=== PATIENT | female | born 1990 | race African-American/Black ===

== ENCOUNTER 2021-04-23 14:22 | Observation (INO) | payer OTHER, SELFPAY ==
[2021-04-23 14:45] VITALS: BP 106/65; PULSE 104
[2021-04-23 14:46] VITALS: BP 105/65; PULSE 104
[2021-04-23 15:42] VITALS: BMI 29.9
--- NOTE | 2021-05-16 19:31 | PM.OBTRLD ---
OB - Triage/Final Diagnosis Visit Information Comments/Additional reasons for admission: I have assessed the risk for this patient, Ibis Wyatt, and determined that she would benefit from observation care. Final Diagnosis (1) Edema: Code(s): R60.9 - Edema, unspecified Status: Acute
== END 2021-04-23 16:25 | disposition home or self-care (01) ==
PROVIDERS: Admitting Provider Obstetrics & Gynecology; PCP Obstetrics & Gynecology; Visit Provider Obstetrics & Gynecology
DX: O12.03 Gestational edema, third trimester (principal); O24.419 Gestational diabetes mellitus in pregnancy, unspecified control; Z3A.31 31 weeks gestation of pregnancy
CPT/HCPCS: G0378; G0379

== ENCOUNTER 2021-04-26 12:30 | Outpatient (RCR) | payer OTHER, SELFPAY ==
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
--- NOTE | 2021-03-31 14:09 | PCPTNOTE ---
Patient called & cancelled scheduled appointment this date due to not being able to make it today.
--- NOTE | 2021-04-12 09:20 | PCPTNOTE ---
Patient called & cancelled scheduled appointment this date due to still being out of town.
--- NOTE | 2021-04-26 14:20 | PTOPEVAL ---
PHYSICAL THERAPY DISCHARGE SUMMARY Thank you for referring Ibis Wyatt to [facility].? Ibis was seen for a total of 7 visits. Progress has made towards goals set, but she is still having back discomfort and mobility difficulties as her progresses. She is ready for d/c from PT to HEP - which she was encouraged to continue to perform. I agree with Ibis's discharge from PT. Referring Physician Date Admitting Provider: Attending Provider: Jennifer Delacruz MD Referring Provider: Jennifer Delacruz MD Therapy Assessment Status Assessment Status Assessment Status Discharge Outpatient Past Medical History Past Medical History Source of Past Medical History Patient Reproductive History Hx Section Yes: 2013 Evaluation Information Problem Diagnosis low back pain in Subjective Information Ibis states that she is Query Text:As Reported By Patient/ ready to have the baby but Family realizes that she still has 8 more weeks to go until due date. Will get increase in discomfort with prolonged standing, with moving and doing something as well. Sleeping can be uncomfortable - rolling takes awhile due to discomfort. Pain Assessment Timing of Pain Assessment Timing of Pain Assessment Assessment Pain Scale Pain Scale Used Numeric (1 - 10) Self Report Pain Assessment Lower Back Reported Pain Level 5 Other Pain Description in and out type of pain Lowest Pain Intensity 2 Greatest Pain Intensity 5 Cervical and Lumbar ROM Lumbar ROM Lumbar Flexion (0-90) 60 Query Text:Active in Degrees Lumbar Extension (0-40) 25 Query Text:Active in Degrees Lumbar Lateral Flexion Right (0-40) 20 Query Text:Active in Degrees Lumbar Lateral Flexion Left (0-40) 20 Query Text:Active in Degrees Lumbar Comments no c/o's of discomfort Palpation Assessment Palpation Palpation standing - L posterior innominate - very mild decreased mobility with L SIJ Rehab Teaching Rehab Teaching Teaching Topic Rehab Teaching Topic Components Exercise,Home Program As Pertains To Technique Recipient Patient Learning Preferences Audio,Demonstration,Discussion ,One-on-One Instruction,Visual ,Written Barriers to Learning None Readiness to Learn Good Response Returns Demonstration,
== END 2021-04-29 14:34 | disposition home or self-care (01) ==
LOC: ANHPT 12:30
PROVIDERS: PCP Obstetrics & Gynecology; Referring Provider Obstetrics & Gynecology; Visit Provider Obstetrics & Gynecology
DX: O26.899 Other specified pregnancy related conditions, unspecified trimester (principal); M54.5 Low back pain; Z3A.00 Weeks of gestation of pregnancy not specified
CPT/HCPCS: 97110; 97140; 97162

== ENCOUNTER 2021-05-17 14:24 | Observation (INO) | payer OTHER, SELFPAY ==
[2021-05-17] VITALS (29 sets, daily range): BP systolic 96–123; BP diastolic 58–87; PULSE 97–124; TEMP 36.4–36.6; BMI 30.4
--- NOTE | ~2021-05-17 | US_ITS ---
EXAMINATION: US OB limited DATE: 05/18/2021 07:34 INDICATION: Possible amniotic fluid leak during third trimester TECHNIQUE: Real-time ultrasound of the pelvis was performed. The interpreting radiologist was not pre sent for the study. COMPARISON: None. FINDINGS: There is a single living fetus in vertex presentation. The placenta is posterior. car diac activity and movement are noted. heart rate is 132 beats per minute (bpm). The amnio tic fluid index is 12.53 cm which is normal (normal range: 8.1 cm to 24.8 cm). IMPRESSION: 1. Single living fetus in vertex presentation. 2. Normal amniotic fluid index. Reviewed, dictated and finalized at location B.
--- NOTE | 2021-05-17 14:25 | LDADM ---
This patient, Ibis Wyatt, was admitted to OB Post 113 on 05/17/21 at 14:25. Plans for labor, pain management and were discussed with patient. Patient/family oriented to hospital policies and general routines including ID bracelet, bed and alarms, visiting hours, pain management, procedures, bathroom and other care routines, personal items, smoking policy, room service/diet and guest tray routines, infant security routines, and visiting hours. Patient/Family are encouraged to report perceived risks to care and to ask questions if they do not understand what they are told or what they should do. See OBIX for further documentation.
[2021-05-17 15:17] LABS: Add Urine Microscopic? YES; Appearance Urine Clear (Clear); Bacteria Urine Trace /hpf; Bilirubin Urine Negative (Negative); Blood Urine Negative (Negative); Color Urine Yellow (Yellow); Glucose Urine UA 1+ mg/dL (Negative); Ketones Urine Negative (Negative); Leukocyte Esterase Ur Negative LEU/UL (NEGATIVE); Mucus Urine Rare /lpf; Nitrate Urine Negative (Negative); Protein Urine 1+ mg/dL (Negative); RBC Urine 0-2 /hpf (0-2); Squamous Epithelial Cell Urine Few /hpf (Few); WBC Urine 0-3 /hpf (0-3)
[2021-05-17 17:22] LABS: Basophils Percent Auto 0.2 % (0.2-1.2); Eosinophils Percent Auto 0.5 % (0-4.4); Hematocrit 31.4 % (37.0-47.0); Hemoglobin 9.6 g/dL (12.0-15.0); Immature Granulocyte Absolute 0.14 K/mm3 (0.00-0.031); Immature Granulocyte Percent A 1.7 % (0-0.5); Lymphocytes Absolute Auto 1.94 K/mm3 (0.9-3.2); Lymphocytes Percent Auto 24.1 % (18.3-44.2); Mean Corpuscular HGB Conc 30.6 g/dl (32-36); Mean Corpuscular Hemoglobin 26.5 pg (26-34); Mean Corpuscular Volume 86.7 fl (80-100); Mean Platelet Volume 12.9 fl (7.4-10.4); Monocytes Absolute Auto 0.8 K/mm3 (0.1-0.6); Monocytes Percent Auto 10.2 % (2.6-8.5); Neutrophils Absolute Auto 5.1 K/mm3 (1.3-6.7); Neutrophils Percent Auto 63.3 % (45.5-73.1); Nucleated Red Blood Cells Perc 0.2 % (0.0-0.2); Platelet Count Result 193 k/mm3 (150-375); Red Blood Count 3.62 M/mm3 (4.2-5.4); Red Cell Distribution Width 14.7 % (11.5-14.5)
[2021-05-17 17:35] LABS: Uric Acid 3.5 mg/dL (2.5-7.5)
[2021-05-17 17:45] LABS: Anisocytosis 2+ (NORMAL); Hypochromasia 1+ (NORMAL); Platelet Estimate Adequate (Adequate)
[2021-05-17] MEDS: LACTATED RINGERS 1,000 ML 125 ML IV CONT (17:58)
[2021-05-17] MEDS: AMPICILLIN 2 GM/NS 100 ML 2 GM/100 ML BAG IVPB (17:58)
[2021-05-17 18:22] LABS: Amphetamine Screen Urine Negative (Negative); Barbiturate Screen Urine Negative (Negative); Benzodiazepines Screen Urine Negative (Negative); Cannabinoid Screen Urine Negative (Negative); Cocaine Screen Urine Negative (Negative); Methadone Screen Urine Negative (Negative); Opiate Screen Urine Negative (Negative); Phencyclidine Screen Urine Negative (Negative)
[2021-05-17 18:58] LABS: Alanine Aminotransferase 14 U/L (4-35); Albumin Level 3.4 g/dL (3.5-5.1); Anion Gap 4 mmol/L (8-16); Aspartate Amino Transferase 25 U/L (14-36); Bilirubin,Total 0.4 mg/dL (0.2-1.3); Blood Urea Nitrogen 10 mg/dL (7-17); Calcium 8.9 mg/dL (8.4-10.2); Carbon Dioxide 21 mmol/L (22-30); Chloride 106 mmol/L (98-107); Estimated CRCL calculation 143 ml/min; Estimated Glomerular Filt Rate > 60; Glucose 73 mg/dL (65-110); Potassium 3.9 mmol/L (3.4-5.0); Sodium 131 mmol/L (137-145)
[2021-05-17 19:01] LABS: Alkaline Phosphatase 1574 U/L (38-126)
[2021-05-17] MEDS: AMPICILLIN 1 GM/NS 50 ML 1 GM/50 ML BAG IVPB (23:14)
[2021-05-18] VITALS (9 sets, daily range): BP systolic 105–112; BP diastolic 56–63; PULSE 94–102; TEMP 36.5–36.6
[2021-05-18] MEDS: AMPICILLIN 1 GM/NS 50 ML 1 GM/50 ML BAG IVPB ×2 (03:31→07:53)
[2021-05-18 06:26] LABS: Glucose Point of Care 103 mg/dl (65-105)
[2021-05-18 06:50] LABS: Rapid Plasma Reagin Non-Reactive (NonReactive)
--- NOTE | 2021-05-18 07:24 | PC.NURSE ---
Patient taken to ultrasound via wheelchair.
--- NOTE | 2021-05-18 08:10 | PC.NURSE ---
Dr. Lemos at bedside. Dr. Lemos updated on maternal and assessments; including MARANDA results. FHT strip reviewed. Plan of care discussed with patient. Dr. Lemos performed speculum exam and collected cultures and ROM plus.
--- NOTE | 2021-05-18 08:13 | PM.IMHP ---
H&P: HPI History of Present Illness Date/Time: 05/18/21 08:13 Chief Complaint: pelvic pressure, leaking of fluid Narrative: Pt is a at 34+ weeks who was admitted in [place] with possible PTL, 4cm, got steroids, all last week. Traveled home, then Sunday started leaking, not urine, but only happened shortly after she urinated. While walking around otherwise never leaked. Denies odor, irritation, itching. Yesterday ROM plus was pos, but MARANDA this am was 12+. WBC 8. Has been on antibiotics. Occasional contractions. Review of Systems Review of Systems: All systems reviewed & are unremarkable except as noted in HPI and below Meds Home Medications and Allergies Allergies Allergy/AdvReac Type Severity Reaction Status Date / Time No Known Allergies Allergy Unknown Unverified 04/23/17 14:59 Vital Signs Vital Signs - 24 hr 05/17/21 15:00 05/17/21 15:15 05/17/21 15:30 Temperature Pulse Rate 98 124 H 100 Blood Pressure 113/65 96/66 L 113/79 05/17/21 15:45 05/17/21 16:00 05/17/21 16:10 Temperature 97.6 F Pulse Rate 105 H 100 Blood Pressure 114/74 119/73 05/17/21 16:15 05/17/21 16:31 05/17/21 16:45 Temperature Pulse Rate 108 H 101 H 97 Blood Pressure 119/87 119/74 117/69 05/17/21 17:01 05/17/21 17:15 05/17/21 19:32 Temperature Pulse Rate 100 103 H 101 H Blood Pressure 123/68 105/75 117/69 05/17/21 19:45 05/17/21 20:01 05/17/21 20:13 Temperature 97.8 F Pulse Rate 124 H 107 H Blood Pressure 107/61 109/77 05/17/21 20:15 05/17/21 20:30 05/17/21 20:45 Temperature Pulse Rate 103 H 104 H 105 H Blood Pressure 109/66 108/60 105/64 05/17/21 21:00 05/17/21 21:15 05/17/21 21:30 Temperature Pulse Rate 101 H 100 104 H Blood Pressure 106/58 L 111/62 109/69 05/17/21 21:45 05/17/21 22:00 05/17/21 22:46 Temperature Pulse Rate 115 H 103 H Blood Pressure 122/82 110/62 114/63 05/17/21 23:01 05/17/21 23:15 05/17/21 23:31 Temperature Pulse Rate 107 H 103 H 99 Blood Pressure 107/61 109/73 111/62 05/17/21 23:45 05/17/21 23:50 05/18/21 00:00 Temperature 98 F Pulse Rate 98 102 H Blood Pressure 111/65 110/61 05/18/21 00:15 05/18/21 00:30 05/18/21 00:45 Temperature Pulse Rate 101 H 99 96 Blood Pressure 112/63 107/57 L 110/60 05/18/21 03:35 05/18/21 04:01 05/18/21 07:36 Temperature 97.8 F 97.9 F Pulse Rate 96 Blood Pressure 108/56 L Exam Const: General: no acute distress Cardio: Rate: regular rate Rhythm: regular rhythm GI: GI Palp: Yes Soft to palpation : Other: Normal external genitalia, ROM plus collected, excessive white creamy vaginal discharge. No clear fluid noted from os. Extrem: General: normal to inspection H&P: Results Labs Labs: Short CBC 05/17/21 Range/Units 17:15 WBC 8.0 (4.5-10.0) K/mm3 Hgb 9.6 L (12.0-15.0) g/dL Hct 31.4 L (37.0-47.0) % Plt Count 193 (150-375) k/mm3 BMP 05/17/21 17:15 Sodium 131 L Potassium 3.9 Chloride 106 Carbon Dioxide 21 L BUN 10 Creatinine 0.50 L Glucose 73 Calcium 8.9 Liver Function 05/17/21 Range/Units 17:15 Total Bilirubin 0.4 (0.2-1.3) mg/dL AST 25 (14-36) U/L ALT 14 (4-35) U/L Alkaline Phosphatase 1574 H (38-126) U/L Albumin 3.4 L (3.5-5.1) g/dL Urine 05/17/21 Range/Units 14:52 Urine Color Yellow (Yellow) Urine Appearance Clear (Clear) Urine pH 7.0 (5.0-9.0) Ur Specific [place] 1.030 (1.001-1.035) Urine Protein 1+ H (Negative) mg/dL Urine Glucose (UA) 1+ H (Negative) mg/dL Assessment and Plan Assessment and plan (1) Vaginal discharge during : Code(s): O26.899 - Other specified related conditions, unspecified trimester; N89.8 - Other specified noninflammatory disorders of vagina Status: Acute Additional Plan Given normal MARANDA, speculum exam c/w copious vaginal discharge, and neg Rom plus today, I am confident she does not hav
--- NOTE | 2021-05-18 08:30 | PC.NURSE ---
Dr. Lemos notified of negative ROM plus results. Discharge orders received. Patient will follow-up in office this week.
--- NOTE | 2021-05-18 08:32 | PC.NURSE ---
Plan of care discussed with patient. Patient notified of negative ROM plus results. Patient agrees to plan of care and denies questions. Patient is agreeable to discharge.
--- NOTE | 2021-05-18 08:59 | PC.NURSE ---
Discharge instructions reviewed with patient. Patient states understanding of discharge instructions and denies questions. labor precautions reviewed and handout given to patient. Patient states understanding. Patient instructed to follow-up at [facility] [place] as scheduled tomorrow 05/19/2021.
--- NOTE | 2021-05-18 09:03 | PC.NURSE ---
Patient left ambulating.
== END 2021-05-18 09:03 | disposition home or self-care (01) ==
PROVIDERS: Advanced Practice Midwife; Admitting Provider Obstetrics & Gynecology; PCP Obstetrics & Gynecology; Visit Provider Obstetrics & Gynecology
DX: O26.893 Other specified pregnancy related conditions, third trimester (principal); N89.8 Other specified noninflammatory disorders of vagina; R10.2 Pelvic and perineal pain; Z3A.34 34 weeks gestation of pregnancy
CPT/HCPCS: 36415; 76815; 80053; 80307; 81001; 82948; 84112; 84550; 85025; 86592; 86850; 86900; 86901; 87070; 87086; 87088; 87491; 87591; 87808; 96361; 96365; 96366; G0378; G0379; J0290; J7120

== ENCOUNTER 2021-05-23 06:15 | Inpatient (IN) | payer OTHER, SELFPAY ==
[2021-05-23] VITALS (61 sets, daily range): BP systolic 96–175; BP diastolic 52–128; PULSE 70–171; RESP 16; TEMP 36.5–37; O2SAT 96–100; BMI 31.0
--- NOTE | 2021-05-23 07:03 | WPDANESEPPF ---
Anes - Initial Pre Proc Eval Procedure: labor epidural Date/Time: 05/23/21 07:03 Surgeon: Jennifer Delacruz MD Pre Op Diagnosis: labor pain Pre Op Diagnosis: SROM Patient Data Age: 30 Gender: F Height: Weight: Allergies Allergy/AdvReac Type Severity Reaction Status Date / Time No Known Allergies Allergy Unknown Unverified 04/23/17 14:59 Laboratory Tests 05/23/21 05/23/21 06:58 06:58 WBC Pending RBC Pending Hgb Pending Hct Pending MCV Pending MCH Pending MCHC Pending RDW Pending Plt Count Pending MPV Pending Immature Gran % (Auto) Pending Neut % (Auto) Pending Lymph % (Auto) Pending [place] % (Auto) Pending Eos % (Auto) Pending Baso % (Auto) Pending Lymph # (Auto) Pending [place] # (Auto) Pending Eos # (Auto) Pending Baso # (Auto) Pending Abs Immat Gran (auto) Pending Absolute Neuts (auto) Pending Absolute Nucleated RBC Pending Nucleated RBC % Pending RPR Pending Patient hx anesthesia problems: none Family hx anesthesia problems: none Anes - Eval Final PreProcedure Day of Procedure 05/23/21 07:03 Patient weight: normal Heart: regular rate and rhythm Lungs: clear to auscultation and normal air movement Airway: Mallampati scale class II Neurological: alert and oriented ASA classification: II Emergent: no Anesthetic plan: proceed Anesthesia type and monitoring: regional epidural and standard monitoring Informed Consent: The patient's anesthetic plan and its attendant risks and benefits were discussed with the patient/family/POA. Questions were solicited and answers provided to the satisfaction of the patient/family/POA.
[2021-05-23] MEDS: AMPICILLIN 2 GM/NS 100 ML 2 GM/100 ML BAG IVPB (07:06)
[2021-05-23] MEDS: LACTATED RINGERS 1,000 ML 125 ML IV CONT ×2 (07:07→07:44)
[2021-05-23 07:15] LABS: Basophils Percent Auto 0.3 % (0.2-1.2); Eosinophils Percent Auto 0.5 % (0-4.4); Hematocrit 35.3 % (37.0-47.0); Hemoglobin 10.4 g/dL (12.0-15.0); Immature Granulocyte Absolute 0.06 K/mm3 (0.00-0.031); Immature Platelet Fraction Pct 16.6 % (0.9-11.2); Lymphocytes Absolute Auto 1.71 K/mm3 (0.9-3.2); Lymphocytes Percent Auto 27.7 % (18.3-44.2); Mean Corpuscular HGB Conc 29.5 g/dl (32-36); Mean Corpuscular Hemoglobin 25.4 pg (26-34); Mean Corpuscular Volume 86.3 fl (80-100); Mean Platelet Volume 13.4 fl (7.4-10.4); Monocytes Absolute Auto 0.4 K/mm3 (0.1-0.6); Monocytes Percent Auto 7.1 % (2.6-8.5); Neutrophils Absolute Auto 3.9 K/mm3 (1.3-6.7); Neutrophils Percent Auto 63.4 % (45.5-73.1); Platelet Count Result 192 k/mm3 (150-375); Red Blood Count 4.09 M/mm3 (4.2-5.4); Red Cell Distribution Width 14.7 % (11.5-14.5); White Blood Count 6.2 K/mm3 (4.5-10.0)
[2021-05-23 07:37] LABS: Glucose Point of Care 80 mg/dl (65-105)
--- NOTE | 2021-05-23 07:37 | WPDOBADMIT ---
Obstetrics - Admit Note Admission Note: 30 y/o @ 35w2d here with srom. complicated by diet controlled GDM.Previous c/s with 1st . History of successful . Pt desires with this . We have discussed risks including uterine rupture. Pt verbalized understanding and agrees to proceed. record reviewed. No pertinent additions to the history and/or any subsequent changes in the physical findings that are not consistent with the expected course of the were found. Additions to the history and/or subsequent changes in the physical findings follow. None.
[2021-05-23 08:37] LABS: Rapid Plasma Reagin Non-Reactive (NonReactive)
[2021-05-23] MEDS: ONDANSETRON INJ 4 MG/2 ML VIAL IV PUSH (10:28)
[2021-05-23] MEDS: OXYTOCIN 30 UNITS/NS 500 ML 30 UNITS/500 ML BAG 125 UNITS IV CONT ×2 (10:28→12:26)
[2021-05-23] MEDS: AMPICILLIN 1 GM/NS 50 ML 1 GM/50 ML BAG IVPB (10:51)
--- NOTE | 2021-05-23 12:09 | PM.OBPRVD ---
OB - Delivery Note Procedure Delivery date: 05/23/21 Procedure: / events: Labor < 37 Weeks, Previous and Premature Rupture of Membrane Intrapartal events: None Induction method: none Delivery monitor: external FHT and external uterine Route of delivery: Episiotomy description: None Laceration Description: None Quantitative Blood Loss (ml): 474 Anesthesia type: Epidural Narrative: Mother and baby in stable condition. Cord gasses collected and handed off to staff. Baby Date of : 05/23/21 Time of : 11:40 Weeks of gestation at delivery: 35 gender: Female presentation: vertex position: Left Occiput Anterior Placenta delivery description: Manual Removal and Abnormal Configuration (Large gush of blood. Cord felt to be from placenta. Manual exp revealed placenta which felt to be tearing into 2 pieces.After delivery placenta is in 1 piece but .) cord vessel description: Delayed Cord Clamping
[2021-05-23 12:56] LABS: Amphetamine Screen Urine Negative (Negative); Barbiturate Screen Urine Negative (Negative); Benzodiazepines Screen Urine Negative (Negative); Cannabinoid Screen Urine Negative (Negative); Cocaine Screen Urine Negative (Negative); Methadone Screen Urine Negative (Negative); Opiate Screen Urine Negative (Negative); Phencyclidine Screen Urine Negative (Negative)
[2021-05-23] MEDS: BENZOCAINE 20% AER SPR (*SP) 56 GM CAN 1 SPRAY TOPICAL (13:33)
[2021-05-23] MEDS: WITCH HAZEL 40 PADS 1 PAD TOPICAL (13:33)
--- NOTE | 2021-05-23 15:50 | PC.NURSE ---
Patient transferred to post room #284 per wheelchair from labor and delivery. Support person present. Oriented to unit, room, information board, rooming in, admission packet and security measures. Patient verbalizes understanding.
[2021-05-23] MEDS: IBUPROFEN 600 MG TABLET PO (22:18)
[2021-05-23] MEDS: ACETAMINOPHEN 325 MG TABLET 650 MG PO (22:59)
[2021-05-24 00:40] VITALS: BP 90/52; PULSE 82; RESP 16; TEMP 36.9; O2SAT 97
[2021-05-24 04:40] VITALS: BP 99/65; PULSE 76; RESP 18; TEMP 36.7; O2SAT 100
[2021-05-24 05:57] LABS: Hematocrit 25.2 % (37.0-47.0); Hemoglobin 7.5 g/dL (12.0-15.0)
--- NOTE | 2021-05-24 07:57 | P.PNOB_ITS ---
OB - PN: Subj Subjective Date/time seen: 05/24/21 07:57 Patient comments: no complaints baby status: doing well OB - PN: Obj Data Labs CBC & Chem 7: 05/24/21 04:55 Labs: Laboratory Results - last 24 hr 05/23/21 05/23/21 05/23/21 06:58 06:58 12:21 Hgb Hct Urine Opiates Screen Negative Urine Methadone Screen Negative Ur Barbiturates Screen Negative Ur Phencyclidine Scrn Negative Ur Amphetamine Screen Negative U Benzodiazepines Scrn Negative Urine Cocaine Screen Negative U Cannabinoids Screen Negative RPR Non-reactive Blood Type B Positive Antibody Screen Negative 05/24/21 04:55 Hgb 7.5 L Hct 25.2 L Urine Opiates Screen Urine Methadone Screen Ur Barbiturates Screen Ur Phencyclidine Scrn Ur Amphetamine Screen U Benzodiazepines Scrn Urine Cocaine Screen U Cannabinoids Screen RPR Blood Type Antibody Screen OB - PN A/P Plan day: 1 Plan: routine care Comments: Plan to repeat H&H. Pt asymptomatic. Time Spent With Patient Time: Total time spent is greater than 50% in coordination of care (as document ed) at patient's floor/unit and/or counseling patient: Time with patient: less than 15 minutes Review of Systems Review of Systems: All systems reviewed & are unremarkable except as noted in HPI and below Exam Narrative: Fundus firm and vaginal flow controlled. No lower ext redness, warmth, or edema. Negative homans. Const: General: comfortable Chest: Breast/axilla inspection: normal inspection of the breasts Resp: Effort & Inspection: normal respiratory effort Cardio: Rate: regular rate GI: GI Palp: Yes Soft to palpation Psych: Appearance: grossly normal Affect: normal affect Attitude: coope rative Thought content: Yes Normal thought content present Judgement: Good judgement present (Psych)
[2021-05-24 08:10] VITALS: BP 106/65; PULSE 85; RESP 16; TEMP 36.8; O2SAT 100
[2021-05-24] MEDS: POLYSACCHARIDE IRON COMPLEX 150 MG CAPSULE PO ×2 (08:11→15:51)
[2021-05-24] MEDS: DOCUSATE SODIUM 100 MG CAPSULE PO ×2 (08:11→15:51)
[2021-05-24] MEDS: MULTIVIT/MIN/PREN/FOL AC/IRON TABLET 1 TAB PO (08:11)
--- NOTE | 2021-05-24 09:15 | WPDANLDPN2 ---
Anes-Prog Note L&D Date/Time: 05/24/21 09:15 Comfortable throughout: labor and delivery Neuraxial method: epidural Epidural/Spinal procedure site: clean & non-tender Neuro status: Neuro function grossly intact. Cardiovascular status: normal Respiratory status: normal Airway patency: baseline Mental status: baseline Post-Op hydration status: normal Vital Signs: Last Vital Signs Temp 36.7 C 05/24/21 04:40 Pulse 76 05/24/21 04:40 Resp 18 05/24/21 04:40 BP 99/65 L 05/24/21 04:40 Pulse Ox 100 05/24/21 04:40 Pain score (VAS): 0 I/O: Intake & Output 05/23/21 05/24/21 05/24/21 23:59 07:59 15:59 Intake Total 500 Output Total 85 Balance 415 Post-procedural complaints: none Patient feedback: Patient satisfied with anesthetic care.
[2021-05-24] MEDS: IBUPROFEN 600 MG TABLET PO ×2 (13:00→18:30)
[2021-05-24] MEDS: ACETAMINOPHEN 325 MG TABLET 650 MG PO (13:01)
[2021-05-24] MEDS: HYDROcodone/acetaminophen (*CRX) 5-325 MG TABLET 1 TAB PO (16:48)
[2021-05-24 17:17] LABS: Hematocrit 28.8 % (37.0-47.0); Hemoglobin 8.6 g/dL (12.0-15.0)
[2021-05-24 18:30] VITALS: BP 116/88; PULSE 94; RESP 16; TEMP 36.8
[2021-05-25] MEDS: IBUPROFEN 600 MG TABLET PO ×3 (05:45→12:35)
--- NOTE | 2021-05-25 07:16 | P.PNOB_ITS ---
OB - PN: Subj Subjective Date/time seen: 05/25/21 07:16 Patient comments: no complaints baby status: doing well [place] feeding status: exclusively bottle feeding OB - PN: Obj Data Labs CBC & Chem 7: 05/24/21 17:05 Labs: Laboratory Results - last 24 hr 05/24/21 17:05 Hgb 8.6 L Hct 28.8 L OB - PN A/P Plan day: 2 Plan: routine care and discharge home Time Spent With Patient Time: Total time spent is greater than 50% in coordination of care (as do cumented) at patient's floor/unit and/or counseling patient: Review of Systems Review of Systems: All systems reviewed & are unremarkable except as noted in HPI and below Exam Const: General: cooperative and healthy appearing Psych: Affect: normal affect Attitude: cooperative Thought process: Normal thought process present Thought content: Yes Normal thought content present Insight: Good insight present (Psych) Judgement: Good judgement present (Psych)
--- NOTE | 2021-05-25 07:18 | PM.OBDSVD ---
DS: Admitting Diagnosis Admitting Diagnosis MIL GDM OB - DS: Summary OB Procedures : None OB Procedures Intrapartum: Spontaneous Vag Delivery OB Procedures: : None Time Spent with Patient Time attestation: Total time spent providing and/or coordinating discharge services: DS: Data Data Completed and Pending Pending studies at discharge: Pending at discharge 05/23/21 11:53 Surgical [PTH] Routine Labs on day of discharge: Labs from last 24 hours 05/24/21 17:05 Hgb 8.6 L Hct 28.8 L Discharge Plan Discharge Attending physician on discharge: Jennifer Delacruz Discharging Clinician: Roxane Broderick Patient Disposition: Home, Self-Care Activity: pelvic rest Diet: regular Patient Instructions: Antibiotic Form Stand Alone Forms: General Discharge Information Follow-up/Referrals: Sugar Samson CNM [Certified Nurse Search Engine Optimization Manager] - 4 Weeks Discharge Medications: New polysaccharide iron complex 150 mg iron Capsule 150 mg PO BIDWM Qty: 60 RF: 0 ibuprofen 600 mg Tablet 600 mg PO Q6HR Qty: 30 RF: 0 Discontinued Classic 1 cap PO DAILY RF: 0 Date of admission: 05/23/21 06:15 Primary Care Provider: PHYSICIAN,UPPER EXTREMITY SURGEON Admitting Provider: Jennifer Delacruz Attending physician on admission: Jennifer Delacruz Condition: Stable
[2021-05-25] MEDS: ACETAMINOPHEN 325 MG TABLET 650 MG PO (07:31)
[2021-05-25] MEDS: DOCUSATE SODIUM 100 MG CAPSULE PO (07:31)
[2021-05-25] MEDS: POLYSACCHARIDE IRON COMPLEX 150 MG CAPSULE PO (07:31)
[2021-05-25 07:50] VITALS: BP 117/75; PULSE 95; RESP 16; TEMP 36.9; O2SAT 100
[2021-05-25] MEDS: TETANUS,DIPHTHERIA,AC PERTUSSIS ADULT (0.5 ML) BOOSTRIX IM (12:35)
--- NOTE | 2021-05-25 13:52 | PC.NURSE ---
Called Temitope Broderick regarding pt's discharge medications of ibuprofen and iron supplements. Expressed to her that the patient did not have a preferred pharmacy entered in the computer at the time of printing the discharge instructions. I entered a preferred pharmacy for the pt and proceeded to re-enter the patient's discharge prescriptions with the help of IT. Roxane Mcgowan said that she would have her nurse in the office take care of confirming that the pt's pharmacy gets the prescriptions called in for verification.
--- NOTE | 2021-05-25 15:30 | PC.NURSE ---
Pt discharged to a no care bed status but has left the hospital at this time with the FOB. remains here under phototherapy. Pt states she will return tonight.
[2021-05-27 11:46] VITALS: BP 119/68; PULSE 88; RESP 18; TEMP 37.4; O2SAT 100
== END 2021-05-25 15:30 | disposition home or self-care (01) | DRG 541 ==
LOC: ANHLDR 06:41 → ANHOB2 15:56
PROVIDERS: Advanced Practice Midwife; Admitting Provider Obstetrics & Gynecology; Visit Provider Obstetrics & Gynecology
DX: O42.913 Preterm premature rupture of membranes, unspecified as to length of time between rupture and onset of labor, third trimester (principal); Z37.0 Single live birth; Z3A.35 35 weeks gestation of pregnancy; O24.420 Gestational diabetes mellitus in childbirth, diet controlled; O34.211 Maternal care for low transverse scar from previous cesarean delivery; O43.893 Other placental disorders, third trimester
CPT/HCPCS: 36415; 80307; 82948; 84112; 85014; 85018; 85025; 85055; 86592; 86850; 86900; 86901; 88307; 90715; A9270; J0290; J0690; J2405; J2590; J2795; J7120

== ENCOUNTER → 2021-09-13 02:59 | Outpatient (CLI) | payer OTHER, SELFPAY ==
[2021-09-13 20:27] LABS: SARS-CoV-2 RNA PCR Negative
== END ==
PROVIDERS: Visit Provider Surgery
DX: Z01.812 Encounter for preprocedural laboratory examination (principal); Z20.822 Contact with and (suspected) exposure to COVID-19
CPT/HCPCS: 36415; 85025; C9803; U0003; U0005

== ENCOUNTER 2021-09-13 08:28 | Outpatient (CLI) | payer OTHER, SELFPAY ==
[2021-09-13 09:23] LABS: Basophils Percent Auto 0.3 % (0.2-1.2); Eosinophils Percent Auto 0.5 % (0-4.4); Hemoglobin 10.4 g/dL (12.0-15.0); Immature Granulocyte Absolute 0.02 K/mm3 (0.00-0.031); Immature Granulocyte Percent A 0.3 % (0-0.5); Lymphocytes Absolute Auto 1.79 K/mm3 (0.9-3.2); Lymphocytes Percent Auto 29.2 % (18.3-44.2); Mean Corpuscular HGB Conc 29.7 g/dl (32-36); Mean Corpuscular Hemoglobin 23.6 pg (26-34); Mean Corpuscular Volume 79.5 fl (80-100); Mean Platelet Volume 11.2 fl (7.4-10.4); Monocytes Absolute Auto 0.4 K/mm3 (0.1-0.6); Monocytes Percent Auto 6.5 % (2.6-8.5); Neutrophils Absolute Auto 3.9 K/mm3 (1.3-6.7); Neutrophils Percent Auto 63.2 % (45.5-73.1); Platelet Count Result 275 k/mm3 (150-375); Red Cell Distribution Width 16.7 % (11.5-14.5); White Blood Count 6.1 K/mm3 (4.5-10.0)
[2021-09-13 11:01] LABS: Hypochromasia 1+ (NORMAL); Platelet Estimate Adequate (Adequate); Stomatocytes 1+ (NORMAL)
== END 2021-09-13 08:29 | disposition home or self-care (01) ==
LOC: ANHSURGERY 08:33
PROVIDERS: Visit Provider Surgery
DX: Z01.812 Encounter for preprocedural laboratory examination (principal); K42.9 Umbilical hernia without obstruction or gangrene
CPT/HCPCS: 36415; 85025

== ENCOUNTER 2021-09-16 01:36 | Day surgery (SDC) | payer OTHER, SELFPAY ==
[2021-09-08 14:36] VITALS: BMI 27.1
--- NOTE | 2021-09-08 14:50 | PC.NURSE ---
Report to the Outpatient Waiting Room, entrance under the green pavilion located off [facility], at time 7:30 on date 09/16/21. OR Time: 9:30. - You and your visitor will be asked a series of questions to screen for COVID 19 for your protection. - A mask is required within the hospital. - Only one visitor is allowed at this time. Patient visitors will be guided where to wait when not with patient. Preoperative COVID Testing Requirements: No COVID Test needed if: (proof is required; if not received patient will have Rapid Test prior to entry) - Patient has received COVID Vaccine at least 14 days prior to procedure date or - Patient has positive COVID test result within last 90 days of surgery date. COVID Test needed if above criteria is not met If not COVID vaccinated a COVID test must be conducted within 72 hours of surgery and patient is asked to isolate self from time of testing until procedure. You will go to the [employer] [facility] for your COVID testing. The [employer] [facility] site is located at the corner of [address] [facility]. COVID TEST 09/13 AT 8:05 You will only be called if COVID results are positive and your surgeon may reschedule your elective surgery date. Patients may have clear liquids (water, carbonated beverages, clear teas, apple juice) until 3 hours prior to surgery with a maximum of 20 ounces. - No food from midnight until time of surgery - Infants may have breast milk until 4 hours before surgery, infant formula 6 hours prior to surgery. - Children will be allowed to drink immediately following surgery. If applicable, please bring a bottle or sippy cup to assist with drinking. Juice, water, soda, and popsicles are readily available. For infants on formula, please bring formula the day of surgery. Pacifiers are allowed. Take the following medications with a SIP of water the morning of surgery: NONE Medications to discontinue per physician: N/A Date to take last dose: N/A Please no make-up, nail estonian, hairspray, perfume, deodorant, or body powder the day of surgery. No jewelry (including any body piercings) or valuables the day of surgery, leave them at home. Please take a shower or bath the night before, or the morning of, surgery with an antibacterial soap. Wear comfortable, loose fitting clothing. Children are encouraged to wear pajamas. HIBICLENS SHOWER - Jewelry must be removed prior to entering the operating room. Rings and piercings that are not removed may be cut off. - The hospital will not accept responsibility for valuables. - Please leave all valuables, including medications, at home the day of surgery. If you are going home after surgery, a licensed spike driver must drive you home. - NO public transportation without another adult. - We recommend that an adult stay with you for 24 hours following discharge. - We also recommend that you do not drive, make important decision, drink alcoholic beverages, or take any drugs that were not prescribed by your health care provider for at least 24 hours after your discharge time. For Pediatric surgeries, we recommend two adults accompany the child home (only one inside the building at this time). Follow any additional instructions given to you from your surgeon. Telephone instructions given to JUSTIN ROBISON and asked if any additional questions and then verbalized understanding. Patient advised to call surgeon office or pre surgery nurse liaison [phone] if any additional questions.
[2021-09-16] VITALS (10 sets, daily range): BP systolic 110–135; BP diastolic 64–78; PULSE 64–88; RESP 12–20; TEMP 36.9–37.1; O2SAT 99–100
--- NOTE | 2021-09-16 08:16 | WPDANESEPPF ---
Anes - Initial Pre Proc Eval Procedure: Operation Date: 09/16/21 09:30 Proposed Procedures p Laparoscopic Umbilical Hernia Repair with Mesh - Max Ling MD Date/Time: 09/16/21 08:16 Surgeon: Max Ling MD Pre Op Diagnosis: umbilical hernia Patient Data Age: 31 Gender: F Height: 1.65 m Weight: 74 kg Allergies Allergy/AdvReac Type Severity Reaction Status Date / Time No Known Allergies Allergy Unknown Verified 09/08/21 14:36 Home Medications Medication Instructions Recorded Confirmed Type No Home Medications 08/17/21 09/11/21 History Patient hx anesthesia problems: none Family hx anesthesia problems: none Results Review: All pre-operative results and documents have been reviewed as part of the pre-operative evaluation. [facility] Past Medical History Medical History (Updated 09/16/21 @ 08:16 by Yovani Curiel MD) Umbilical hernia Surgical History Surgical History History of delivery 2013 Family History Family History Mother Hypertension Thyroid condition Other Cancer Diabetes mellitus Social History Social History Smoking status: Current some day smoker Tobacco type: cigarettes Second hand tobacco smoke exposure: No Alcohol intake: current Alcohol use details: 10/MONTH Substance use: former Substance use type: marijuana Last use: 08/08/21 Living arrangements: with family Additional living arrangements comments: CHILDREN Gender identity (if verbalized by the patient): Female Spiritual care concerns: No Anes - Eval Final PreProcedure Day of Procedure 09/16/21 08:16 Patient weight: overweight Heart: regular rate and rhythm Lungs: clear to auscultation and normal air movement Airway: Mallampati scale class II Neurological: alert and oriented Last oral intake: >/= 8 hours ASA classification: II Emergent: no Anesthetic plan: proceed Anesthesia type and monitoring: general LMA and ETT Results Review: All pre-operative results and documents have been reviewed as part of the pre-operative evaluation. Informed Consent: The patient's anesthetic plan and its attendant risks and benefits were discussed with the patient/family/POA. Questions were solicited and answers provided to the satisfaction of the patient/family/POA.
[2021-09-16] MEDS: LACTATED RINGERS 1,000 ML 30 ML IV CONT ×2 (08:40→11:34)
[2021-09-16] MEDS: ACETAMINOPHEN 500 MG TABLET 1000 MG PO (08:41)
[2021-09-16] MEDS: KETOROLAC 15 MG/ML VIAL (*BKC) IV PUSH (08:42)
--- NOTE | 2021-09-16 09:19 | WPDHPUPDATE1 ---
History and Physical Update Update Date/Time: 09/16/21 09:19 History and Physical has been reviewed, including an updated exam of the patient. There are NO changes in the patient's condition. Risks, benefits, and alternatives have been discussed and questions answered. Patient agrees to proceed with procedure.
[2021-09-16] MEDS: ceFAZolin 2 GM/D5W 50 ML 2 GM/50 ML BAG IVPB (09:45)
[2021-09-16] MEDS: LIDO 2%/EPINEPHRINE 1:100,000 20 ML VIAL INFILTRATE (10:23)
--- NOTE | 2021-09-16 11:48 | PM.OP ---
Procedure Note - Brief Procedure Note - Brief Date of procedure: 09/16/21 Pre-op diagnosis: umbilical hernia Post-op diagnosis: other (Ventral incisional hernia beneath lower umbilicus and lower midline.) Procedure performed: Laparoscopic ventral incisional hernia repair with mesh. Description of procedure: DESCRIPTION OF PROCEDURE: The patient was placed in the supine position on the operative table and after induction of adequate general endotracheal anesthesia by Hank Anesthesia, the entire abdomen was prepped and draped in usual sterile fashion and the head placed slightly up. An Ioban drape was used to prevent contact of the mesh with the skin during this clean case. Patient voided before coming back to surgery so no Rodrigues catheter was placed. OG was placed at the beginning of the procedure to decompress the stomach. Following this, local anesthetic was placed and a spot selected about two fingerbreadths below the costal margin on the left and a small incision made after instilling local anesthetic using 2% Xylocaine with epinephrine. Following this, a Veress needle technique using the water drop test was completed. Using 2 towel clips on the skin, I carefully elevated the skin and then passed the Veress needle into the abdomen and we could see that the saline dropped through the Veress needle easily. CO2 gas was connected and the abdomen was insufflated to 14 mmHg pressure after starting out at around 6. Following this, the 0 degree 5 mm laparoscope was placed inside a 5 mm trocar, which was carefully twisted into the abdomen without difficulty, seeing a open pneumoperitoneum as we entered. Thus, the trocar was removed, the sleeve confirmed to be nicely within the abdomen, and we then carefully inspected the abdomen. Careful inspection of the abdomen revealed no inguinal hernias. A small defect in the umbilical fascia was noted. There was also a tongue of omentum incarcerated up into it what was then seen to be an approximately 2.5 to 3.0 cm wide by 11 cm vertical fascial defect inferior to the umbilicus directly under the midline probably related to the 2 previous C-sections. ( incisional ventral hernia). We then placed a 12 mm port in the left lower quadrant under direct vision with the laparoscope after infiltrating the same local anesthetic into the skin muscular wall and peritoneum. The omentum was taken down using a Laparoscopic scissors and or the [place] dissector with cautery to lyse the adhesions holding the omentum to the underside of the ventral incisional hernia sac. The omentum was taken down and laid on top of the bowel. There was no significant bleeding from the cut ends of the omentum. I reinspected this toward the end of the case also. Following this, we carefully planned by measuring the defect. Our mesh, an Oval 10 X 15 cm piece of Ventralight ST mesh was selected to use for this repair. I chose this so that we would have more than 2.5 cm of overlap in all directions over the midline fascial defect. Measuring external this allowed us to have the upper end of the mesh 2.5 cm above the level of the umbilicus and yet have 2.5 cm coverage inferior to the lower most area of the midline defect in the lower abdomen. Following this, we carefully hydrated the mesh rolled it and placed it in the abdomen through the 12 mm port after rolling it to protect the absorbable covering on the downside of the mesh. I used the suture passer after making a small opening with an 11 blade knife after placing local anesthetic directly in the center of the defect which was about 7 cm inferior to the umbilicus. The suture passer was used to grasp the centering suture and tubing of the Echo 2 positioning System on the mesh, and this was pulled up, centering it and placing a hemostat on the suture externally to keep it in position as we tacked it into place. I then placed a circumferential row of tacks using the absorbable
[2021-09-16] MEDS: oxyCODONE HCL (*CRX) 5 MG TAB IR PO (13:32)
--- NOTE | 2021-09-16 17:18 | W.PM.PROC2 ---
Procedure Note - Detailed Date of Procedure 09/16/21 Pre-op Diagnosis umbilical hernia Post-op Diagnosis other ( infraumbilical midline ventral incisional hernia) Procedure Performed laparoscopic ventral incisional hernia repair with mesh Surgeon Max Ling MD Description of Procedure Date of procedure: 09/16/21 Pre-op diagnosis: umbilical hernia Post-op diagnosis: other (Ventral incisional hernia beneath lower umbilicus and lower midline.) Procedure performed: Laparoscopic ventral incisional hernia repair with mesh. Description of procedure: DESCRIPTION OF PROCEDURE: The patient was placed in the supine position on the operative table and after induction of adequate general endotracheal anesthesia by Hank Anesthesia, the entire abdomen was prepped and draped in usual sterile fashion and the head placed slightly up. An Ioban drape was used to prevent contact of the mesh with the skin during this clean case. Patient voided before coming back to surgery so no Rodrigues catheter was placed. OG was placed at the beginning of the procedure to decompress the stomach. Following this, local anesthetic was placed and a spot selected about two fingerbreadths below the costal margin on the left and a small incision made after instilling local anesthetic using 2% Xylocaine with epinephrine. Following this, a Veress needle technique using the water drop test was completed. Using 2 towel clips on the skin, I carefully elevated the skin and then passed the Veress needle into the abdomen and we could see that the saline dropped through the Veress needle easily. CO2 gas was connected and the abdomen was insufflated to 14 mmHg pressure after starting out at around 6. Following this, the 0 degree 5 mm laparoscope was placed inside a 5 mm trocar, which was carefully twisted into the abdomen without difficulty, seeing a open pneumoperitoneum as we entered. Thus, the trocar was removed, the sleeve confirmed to be nicely within the abdomen, and we then carefully inspected the abdomen. Careful inspection of the abdomen revealed no inguinal hernias. A small defect in the umbilical fascia was noted. There was also a tongue of omentum incarcerated up into it what was then seen to be an approximately 2.5 to 3.0 cm wide by 11 cm vertical fascial defect inferior to the umbilicus directly under the midline probably related to the 2 previous C-sections. ( incisional ventral hernia). We then placed a 12 mm port in the left lower quadrant under direct vision with the laparoscope after infiltrating the same local anesthetic into the skin muscular wall and peritoneum. The omentum was taken down using a Laparoscopic scissors and or the [place] dissector with cautery to lyse the adhesions holding the omentum to the underside of the ventral incisional hernia sac. The omentum was taken down and laid on top of the bowel. There was no significant bleeding from the cut ends of the omentum. I reinspected this toward the end of the case also. Following this, we carefully planned by measuring the defect. Our mesh, an Oval 10 X 15 cm piece of Ventralight ST mesh was selected to use for this repair. I chose this so that we would have more than 2.5 cm of overlap in all directions over the midline fascial defect. Measuring external this allowed us to have the upper end of the mesh 2.5 cm above the level of the umbilicus and yet have 2.5 cm coverage inferior to the lower most area of the midline defect in the lower abdomen. Following this, we carefully hydrated the mesh rolled it and placed it in the abdomen through the 12 mm port after rolling it to protect the absorbable covering on the downside of the mesh. I used the suture passer after making a small opening with an 11 blade knife after placing local anesthetic directly in the center of the defect which was about 7 cm inferior to the umbilicus. The suture passer was used to grasp the centering suture
== END 2021-09-16 14:05 | disposition home or self-care (01) ==
PROVIDERS: Visit Provider Surgery
PROC: (CPT 49654; principal; 2021-09-16 09:30)
DX: K43.2 Incisional hernia without obstruction or gangrene (principal); F17.210 Nicotine dependence, cigarettes, uncomplicated
CPT/HCPCS: 49654; A9270; J0690; J1100; J1885; J2250; J2405; J2704; J2710; J3010; J7120

== ENCOUNTER 2022-03-25 18:31 | Emergency (ER) | payer OTHER, SELFPAY ==
--- NOTE | ~2022-03-25 | XR_ITS ---
EXAM: XR abdomen/kub 1V DATE: 03/25/2022 19:23 HISTORY: constipation,BLOATING,PAIN ACROSS ABD,NO APPETITE,DISCOMFORT . COMPARISON: None available. FINDINGS: Clear lung bases. Normal bowel gas pattern. No organomegaly. 5 mm rounded density or calci fication projects in the region of the right renal shadow, may reflect a kidney stone versus artifact from overlying bowel. Small pelvic phleboliths. IUD, most likely in good position. Regional bones an d soft tissues normal for age. IMPRESSION: No radiographic evidence of obstruction or ileus. 5 mm right nephrolith versus artifact. Reviewed, dictated and finalized at location K. IMPRESSION: No radiographic evidence of obstruction or ileus. 5 mm right nephro lith versus artifact.
[2022-03-25 18:49] VITALS: BP 111/79; PULSE 81; RESP 20; TEMP 36.9; O2SAT 100
[2022-03-25 19:16] LABS: Basophils Absolute Auto 0.1 K/mm3 (0.0-0.1); Basophils Percent Auto 0.7 % (0.2-1.2); Eosinophils Percent Auto 0.6 % (0-4.4); Hematocrit 31.9 % (37.0-47.0); Hemoglobin 9.2 g/dL (12.0-15.0); Immature Granulocyte Absolute 0.02 K/mm3 (0.00-0.031); Immature Granulocyte Percent A 0.3 % (0-0.5); Lymphocytes Absolute Auto 2.47 K/mm3 (0.9-3.2); Lymphocytes Percent Auto 35.4 % (18.3-44.2); Mean Corpuscular HGB Conc 28.8 g/dl (32-36); Mean Corpuscular Hemoglobin 22.9 pg (26-34); Mean Corpuscular Volume 79.6 fl (80-100); Mean Platelet Volume 10.7 fl (7.4-10.4); Monocytes Absolute Auto 0.4 K/mm3 (0.1-0.6); Monocytes Percent Auto 5.5 % (2.6-8.5); Neutrophils Percent Auto 57.5 % (45.5-73.1); Platelet Count Result 373 k/mm3 (150-375); Red Blood Count 4.01 M/mm3 (4.2-5.4); Red Cell Distribution Width 15.8 % (11.5-14.5)
--- NOTE | 2022-03-25 19:16 | PC.NURSE ---
Report received from AMY Schmitz. This nurse assumed care of patient at this time.
[2022-03-25 19:21] LABS: Appearance Urine Clear (Clear); Bilirubin Urine Negative (Negative); Blood Urine Trace-lysed (Negative); Color Urine Yellow (Yellow); Glucose Urine UA Negative (Negative); Ketones Urine Negative (Negative); Leukocyte Esterase Ur Trace LEU/UL (Negative); Nitrate Urine Negative (Negative); Protein Urine Negative (Negative); Specific Grav Ur >= 1.030 (1.001-1.035); Urobilinogen Urine 0.2 mg/dL (<2.0)
[2022-03-25 19:23] LABS: Mucus Urine Rare /lpf; Squamous Epithelial Cell Urine Occasional /hpf (Few)
[2022-03-25 19:24] LABS: Alanine Aminotransferase 13 U/L (6-35); Albumin Level 4.6 g/dL (3.5-5.1); Alkaline Phosphatase 103 U/L (38-126); Anion Gap 6 mmol/L (8-16); Aspartate Amino Transferase 26 U/L (14-36); Bilirubin,Total 0.4 mg/dL (0.2-1.3); Blood Urea Nitrogen 13 mg/dL (7-17); Calcium 8.9 mg/dL (8.4-10.2); Carbon Dioxide 27 mmol/L (22-30); Chloride 105 mmol/L (98-107); Estimated CRCL calculation 92 ml/min; Estimated Glomerular Filt Rate > 60; Glucose 95 mg/dL (65-110); Lipase 147 U/L (23-300); Potassium 3.9 mmol/L (3.4-5.0); Sodium 138 mmol/L (137-145)
[2022-03-25 19:40] LABS: Add Urine Microscopic? YES
--- NOTE | 2022-03-25 20:13 | ED.GENADULT ---
HPI - General Adult General Chief complaint: Abdominal Pain Stated complaint: abd pain Time Seen by Provider: 03/25/22 18:43 History of Present Illness HPI narrative: Patient is a 31-year-old female who presents ER with abdominal cramping. Ongoing for 3 weeks. She said small caliber stools that come out and small round bits. She is passing gas. No nausea or vomiting. No fevers or chills or sweats. She denies urinary frequency urgency or dysuria. She does report she has had some blood when she wipes since she has come off of her menstrual cycle. No vaginal discharge. Not concern for sexually transmitted infection. Denies sexual activity without protection. Related Data Allergies Allergy/AdvReac Type Severity Reaction Status Date / Time No Known Allergies Allergy Unknown Verified 03/25/22 18:32 Review of Systems Review of Systems: All systems reviewed & are unremarkable except as noted in HPI and below Constitutional: Constitutional: Denies chills, Denies fatigue and Denies fever(s) Respiratory: Respiratory: Denies cough and Denies dyspnea Gastrointestinal: Gastrointestinal: Reports abdominal pain, Reports bloating, Reports constipation, Denies nausea and Denies vomiting Genitourinary: Genitourinary: Reports abnormal vaginal bleeding (Scant spotting), Denies hematuria, Denies nocturia, Denies dysuria, Denies flank pain and Denies vaginal discharge [facility] Past Medical History Medical History (Updated 03/25/22 @ 20:25 by Fabien Harris MD) Overweight (BMI 25.0-29.9) Umbilical hernia Surgical History Surgical History (Updated 11/02/21 @ 11:33 by Renee Eduardo) History of delivery 2013 History of ventral hernia repair 09/16/2021 - laparoscopic ventral incisional hernia repair with mesh Family History Family History Mother Hypertension Thyroid condition Other Cancer Diabetes mellitus Social History Social History Smoking status: Current some day smoker Tobacco type: cigarettes Second hand tobacco smoke exposure: No Alcohol intake: current Alcohol use details: 10/MONTH Substance use: former Substance use type: marijuana Last use: 08/08/21 Additional living arrangements comments: CHILDREN Gender identity (if verbalized by the patient): Female Spiritual care concerns: No Exam Narrative: GENERAL: Well-appearing, well-nourished, and in no acute distress. HEAD: Normocephalic, atraumatic. CHEST: Clear to auscultation. No respiratory distress. HEART: Regular rate and rhythm. Normal peripheral pulses. ABDOMEN: Soft, nontender, nondistended. EXTREMITIES: Normal range of motion. No edema. SKIN: Warm, dry, no rash. NEURO: Alert and oriented x3. PSYCH: Normal mood and affect. Course Course Emergency Course: Patient probably some mild constipation causing her discomfort. Discussed finding to be related to her IUD and recommend follow-up with gynecology. Will place on stool softener/laxative to help her go to the bathroom. Vital Signs Vital signs: Vital Signs Temperature 98.4 F 03/25/22 18:49 Pulse Rate 81 03/25/22 18:49 Respiratory Rate 20 03/25/22 18:49 Blood Pressure 111/79 03/25/22 18:49 Pulse Oximetry 100 03/25/22 18:49 Oxygen Delivery Room Air 03/25/22 18:49 Temperature 98.4 F 03/25/22 18:49 Pulse Rate 81 03/25/22 18:49 Respiratory Rate 20 03/25/22 18:49 Blood Pressure 111/79 03/25/22 18:49 Pulse Oximetry 100 03/25/22 18:49 Oxygen Delivery Room Air 03/25/22 18:49 Medical Decision Making Vital Signs Vital Signs: Vital Signs Temperature 98.4 F 03/25/22 18:49 Pulse Rate 81 03/25/22 18:49 Respiratory Rate 20 03/25/22 18:49 Blood Pressure 111/79 03/25/22 18:49 Pulse Oximetry 100 03/25/22 18:49 Oxygen Delivery Room Air 03/25/22 18:49 Temperature 98.4 F 0
[2022-03-25 20:46] VITALS: BP 131/89; PULSE 79; RESP 19; O2SAT 98
== END 2022-03-25 20:47 | disposition home or self-care (01) ==
PROVIDERS: Emergency Provider Emergency Medicine; PCP Obstetrics & Gynecology
DX: K59.00 Constipation, unspecified (principal); E66.3 Overweight; Z68.27 Body mass index [BMI] 27.0-27.9, adult; F17.210 Nicotine dependence, cigarettes, uncomplicated
CPT/HCPCS: 36415; 74018; 80053; 81001; 81025; 83690; 85025; 99283

== ENCOUNTER 2022-09-15 21:38 | Emergency (ER) | payer OTHER, SELFPAY ==
[2022-09-15 21:57] VITALS: BP 120/83; PULSE 86; RESP 16; TEMP 36.5; O2SAT 100
--- NOTE | 2022-09-16 01:37 | PC.NURSE ---
Patient reporting concerns for STI. Requesting testing.
[2022-09-16 01:42] LABS: Appearance Urine Clear (Clear); Bilirubin Urine Negative (Negative); Blood Urine Trace-lysed (Negative); Color Urine Yellow (Yellow); Glucose Urine UA Negative (Negative); Ketones Urine Negative (Negative); Leukocyte Esterase Ur 2+ LEU/UL (Negative); Nitrate Urine Negative (Negative); Protein Urine Negative (Negative); Specific Grav Ur >= 1.030 (1.001-1.035); Urobilinogen Urine 0.2 mg/dL (<2.0); pH Urine 5.5 (5.0-9.0)
[2022-09-16 02:37] LABS: Add Urine Microscopic? YES; Mucus Urine Few /lpf; Squamous Epithelial Cell Urine Few /hpf (Few)
[2022-09-16] MEDS: cefTRIAXone 1 GM VIAL 0.5 GM IM (03:54)
--- NOTE | 2022-09-16 04:16 | ED.FEMALEGU ---
HPI - Female Genitourinary General Chief complaint: Urogenital-Female Stated complaint: swollen genitals Time Seen by Provider: 09/16/22 03:17 History of Present Illness HPI Narrative: Patient is a 32-year-old female who presents ER with inflammation of her vagina. She noticed after going to the gym that her clitoris and labia were enlarged. She reports that she has had this on 1 or 2 other occasions. Denies any blisters. She reports she has been having some odd discharge for about a week with some vaginal itching and burning. No dysuria. Discharges dark and nonbloody. Will occasionally occur after she has menstrual period which occurred 1 week ago. Reports he suspected with 1 partner. Reports there was no incident several months back but is unsure if there have been any additional regards to also being exposed by her partner. Related Data Allergies Allergy/AdvReac Type Severity Reaction Status Date / Time No Known Allergies Allergy Unknown Verified 03/25/22 18:32 Review of Systems Review of Systems: All systems reviewed & are unremarkable except as noted in HPI and below Constitutional: Constitutional: Denies chills and Denies fatigue Gastrointestinal: Gastrointestinal: Denies abdominal pain, Denies diarrhea, Denies nausea and Denies vomiting Genitourinary: Genitourinary: Denies abnormal vaginal bleeding, Denies hematuria, Denies nocturia, Denies genital lesions, Denies dysuria, Denies flank pain and Reports vaginal discharge [facility] Past Medical History Medical History (Updated 09/16/22 @ 04:25 by Fabien Harris MD) Overweight (BMI 25.0-29.9) Umbilical hernia Surgical History Surgical History (Updated 11/02/21 @ 11:33 by Renee Eduardo) History of delivery 2013 History of ventral hernia repair 09/16/2021 - laparoscopic ventral incisional hernia repair with mesh Family History Family History Mother Hypertension Thyroid condition Other Cancer Diabetes mellitus Social History Social History Smoking status: Current some day smoker Tobacco type: cigarettes Second hand tobacco smoke exposure: No Alcohol intake: current Alcohol use details: 10/ Substance use: former Substance use type: marijuana Last use: 08/08/21 Additional living arrangements comments: CHILDREN Gender identity (if verbalized by the patient): Female Spiritual care concerns: No Exam Narrative: GENERAL: Well-appearing, well-nourished, and in no acute distress. HEAD: Normocephalic, atraumatic. CHEST: Clear to auscultation. No respiratory distress. HEART: Regular rate and rhythm. Normal peripheral pulses. ABDOMEN: Soft, nontender, nondistended. : External genitalia thick and hypertrophied. No ulcerations or vesicles. There is an absence of pubic hair consistent with self care. No pustules. Cervix without erythema or friability. There is moderate mucus-like discharge as dark yellow in color. No pooling. No evidence of candidal infection. EXTREMITIES: Normal range of motion. No edema. SKIN: Warm, dry, no rash. NEURO: Alert and oriented x3. PSYCH: Normal mood and affect. Course Course Emergency Course: Trichomonal test negative. Discharged with Doxy and Flagyl as patient also received reported ceftriaxone IM. Patient wishes to be covered for STI. Has f/u with her VACCINATOR. Vital Signs Vital signs: Vital Signs Temperature 97.7 F 09/15/22 21:57 Pulse Rate 86 09/15/22 21:57 Respiratory Rate 16 09/15/22 21:57 Blood Pressure 120/83 09/15/22 21:57 Pulse Oximetry 100 09/15/22 21:57 Oxygen Delivery Room Air 09/15/22 21:57 Temperature 97.7 F 09/15/22 21:57 Pulse Rate 86 09/15/22 21:57 Respiratory Rate 16 09/15/22 21:57 Blood Pressure 120/83 09/15/22 21:57 Pulse Oximetry 100 09/15/22 21:57 Oxygen Delivery Room Air 09/15/22 21:5
== END 2022-09-16 04:57 | disposition home or self-care (01) ==
PROVIDERS: Emergency Provider Emergency Medicine; PCP Obstetrics & Gynecology
DX: N89.8 Other specified noninflammatory disorders of vagina (principal); E66.3 Overweight; Z68.25 Body mass index [BMI] 25.0-25.9, adult; F17.210 Nicotine dependence, cigarettes, uncomplicated
CPT/HCPCS: 81001; 81025; 87070; 87147; 87491; 87591; 87808; 96372; 99284; J0696

== ENCOUNTER 2022-11-14 18:02 | Emergency (ER) | payer OTHER, SELFPAY ==
[2022-11-14 18:13] VITALS: BP 119/71; PULSE 88; RESP 16; TEMP 37.2; O2SAT 100
--- NOTE | 2022-11-14 18:29 | ED.URI ---
HPI - URI/Sore Throat General Chief Complaint: Upper Respiratory Infection Stated Complaint: sore throat Time Seen by Provider: 11/14/22 18:29 History of Present Illness HPI Narrative: 32-year-old female presented for complaint of sore throat for 2 days. Endorses pain is worse with talking or swallowing. She denies associated cough, congestion, shortness of, wheezing, vomiting, fevers or chills. She has not taking anything for symptoms. She denies known sick contacts with strep but states her 1-year-old has been coughing. Related Data Allergies Allergy/AdvReac Type Severity Reaction Status Date / Time No Known Allergies Allergy Unknown Verified 11/14/22 18:16 Review of Systems Review of Systems: CONSTITUTIONAL: Denies body aches, fever, chills, or sweats. EYES: Denies visual changes, redness, or discharge. ENT: Denies rhinorrhea, congestion, or otalgia. CARDIOVASCULAR: Denies chest pain, palpitations, or edema. RESPIRATORY: Denies dyspnea. GASTROINTESTINAL: Denies abdominal pain, nausea, vomiting, or diarrhea. SKIN: Denies rash, itching, or wounds. MUSCULOSKELETAL: Denies back pain, joint pain, or myalgia. NEUROLOGIC: Denies headache PMFSH Past Medical History Medical History Overweight (BMI 25.0-29.9) Umbilical hernia Surgical History Surgical History History of delivery 2014 History of ventral hernia repair 09/16/2021 - laparoscopic ventral incisional hernia repair with mesh Family History Family History Mother Hypertension Thyroid condition Other Cancer Diabetes mellitus Social History Social History Smoking status: Current some day smoker Tobacco type: cigarettes Second hand tobacco smoke exposure: No Alcohol intake: current Alcohol use details: 10/MONTH Substance use: former Substance use type: marijuana Last use: 08/08/21 Living arrangements: with family Additional living arrangements comments: CHILDREN Gender identity (if verbalized by the patient): Female Spiritual care concerns: No Exam Narrative: GENERAL: Ill-appearing, no acute distress. EYES: conjunctivae clear ENT: Mucous membranes moist. TMs pearly quintanilla with normal light reflex bilaterally; no tragal tenderness. Oropharynx erythematous without lesions. Tonsils enlarged and without exudate. Hoarse voice. No drooling, no trismus, uvula midline. No tripod positioning, hot potato voice, or soft palate swelling. NECK: Supple. No lymphadenopathy CHEST: Clear to auscultation, breath sounds equal. No respiratory distress, speaks in full sentences. HEART: Regular rate and rhythm. No murmur heard. SKIN: Warm, dry, no rash. NEURO: Alert and oriented x3. Course Course Emergency Course: Patient is aware of diagnosis, understands and agrees to treatment plan. Anticipatory guidance given. Patient agrees to follow-up as directed and is aware of reasons to seek care at the emergency department. Portions of this record may have been created with voice recognition software Level of Care: Express Care Visit Vital Signs Vital signs: Vital Signs Temperature 98.9 F 11/14/22 18:13 Pulse Rate 88 11/14/22 18:13 Respiratory Rate 16 11/14/22 18:13 Blood Pressure 119/71 11/14/22 18:13 Pulse Oximetry 100 11/14/22 18:13 Oxygen Delivery Room Air 11/14/22 18:13 Temperature 98.9 F 11/14/22 18:13 Pulse Rate 88 11/14/22 18:13 Respiratory Rate 16 11/14/22 18:13 Blood Pressure 119/71 11/14/22 18:13 Pulse Oximetry 100 11/14/22 18:13 Oxygen Delivery Room Air 11/14/22 18:13 MDM - URI/Sore Throat MDM Narrative Medical decision making narrative: strep result reviewed with pt. Advise supportive treatments. Patient is appropriate for outpati
== END 2022-11-14 18:39 | disposition home or self-care (01) ==
PROVIDERS: Emergency Provider Nurse Practitioner Family
DX: J02.0 Streptococcal pharyngitis (principal); F17.210 Nicotine dependence, cigarettes, uncomplicated
CPT/HCPCS: 87880; 99213; G0463

== ENCOUNTER 2022-12-21 08:14 | Emergency (ER) | payer OTHER, SELFPAY ==
--- NOTE | ~2022-12-21 | XR_ITS ---
EXAMINATION: XR abdomen/kub 1V DATE: 12/21/2022 10:13 INDICATION: Right ureteral stone. TECHNIQUE: A supine view of the abdomen on 2 radiographs was obtained. COMPARISON: CT abdomen and pelvis 12/21/2022 FINDINGS: There are no dilated loops of bowel. There is a delayed right-sided contrast nephrogram. Th ere is a 5 mm stone in proximal right ureter. There is an intrauterine device in expected position. IMPRESSION: 1. 5 mm stone in proximal right ureter. Reviewed, dictated and finalized at location A.
--- NOTE | ~2022-12-21 | CT_ITS ---
EXAMINATION: CT abdomen pelvis w con DATE: 12/21/2022 09:42 INDICATION: Right lower quadrant abdominal pain TECHNIQUE: Computed tomography (CT) of the abdomen and pelvis was performed with 100 mL Omnipaque-350 intravenous contrast. Automated exposure control and iterative reconstruction technique were employe d. The dose-length product was 311.45 mGy-cm. COMPARISON: None FINDINGS: Lung bases are clear. Heart size is normal. No pericardial or pleural effusion. Liver, gallbladder, s pleen, pancreas and bilateral adrenal glands are normal. Obstructing 4-5 mm proximal right ureteral s tone with mild right hydronephrosis and delayed right nephrogram. Bowels including the appendix are n ormal. Partially decompressed bladder is unremarkable. T-shaped IUD in expected position within the e ndometrial canal of the retroverted uterus. Small amount of likely physiologic free fluid in the deep pelvis. No abscess or free intraperitoneal gas. No pathologically enlarged abdominal or pelvic lymph adenopathy. Umbilical hernia mesh repair. Bones are unremarkable. IMPRESSION: 1. Obstructing 4-5 mm proximal right ureteral stone with mild right hydronephrosis. 2. IUD in expected position. Reviewed, dictated and finalized at location L. IMPRESSION: 1. Obstructing 4-5 mm proximal right ureteral stone with mild right hydronephro sis. 2. IUD in expected position.
[2022-12-21 08:33] VITALS: BP 118/68; PULSE 79; RESP 16; TEMP 36.9; O2SAT 100
[2022-12-21 08:56] LABS: Basophils Percent Auto 0.4 % (0.2-1.2); Eosinophils Percent Auto 0.4 % (0-4.4); Hematocrit 30.6 % (37.0-47.0); Immature Granulocyte Absolute 0.01 K/mm3 (0.00-0.031); Immature Granulocyte Percent A 0.2 % (0-0.5); Lymphocytes Absolute Auto 1.07 K/mm3 (0.9-3.2); Lymphocytes Percent Auto 22.9 % (18.3-44.2); Mean Corpuscular HGB Conc 29.4 g/dl (32-36); Mean Corpuscular Volume 78.1 fl (80-100); Mean Platelet Volume 11.3 fl (7.4-10.4); Monocytes Absolute Auto 0.4 K/mm3 (0.1-0.6); Monocytes Percent Auto 8.8 % (2.6-8.5); Neutrophils Absolute Auto 3.1 K/mm3 (1.3-6.7); Neutrophils Percent Auto 67.3 % (45.5-73.1); Platelet Count Result 240 k/mm3 (150-375); Red Blood Count 3.92 M/mm3 (4.2-5.4); Red Cell Distribution Width 15.9 % (11.5-14.5); White Blood Count 4.7 K/mm3 (4.5-10.0)
[2022-12-21 08:59] LABS: Appearance Urine Clear (Clear); Bacteria Urine None Seen /hpf; Bilirubin Urine Negative (Negative); Blood Urine 1+ (Negative); Color Urine Yellow (Yellow); Glucose Urine UA Negative (Negative); Ketones Urine Trace mg/dL (Negative); Leukocyte Esterase Ur Negative LEU/UL (Negative); Nitrate Urine Negative (Negative); Non Pathogenic Casts 0-2; Protein Urine Trace mg/dL (Negative); Specific Grav Ur 1.027 (1.001-1.035); Squamous Epithelial Cell Urine Few /hpf (Few); WBC Urine 0-5 /hpf; pH Urine 6.5 (5.0-9.0)
[2022-12-21 09:03] LABS: Alanine Aminotransferase 18 U/L (6-35); Albumin Level 4.3 g/dL (3.5-5.1); Alkaline Phosphatase 75 U/L (38-126); Anion Gap 5 mmol/L (8-16); Aspartate Amino Transferase 25 U/L (14-36); Bilirubin,Total 0.5 mg/dL (0.2-1.3); Blood Urea Nitrogen 12 mg/dL (7-17); Calcium 8.5 mg/dL (8.4-10.2); Carbon Dioxide 27 mmol/L (22-30); Chloride 105 mmol/L (98-107); Estimated CRCL calculation 51 ml/min; Estimated Glomerular Filt Rate 58; Glucose 98 mg/dL (65-110); Lipase 84 U/L (23-300); Potassium 3.7 mmol/L (3.4-5.0); Sodium 137 mmol/L (137-145)
--- NOTE | 2022-12-21 09:03 | ED.ABDPAIN ---
HPI - Abdominal Pain General Chief Complaint: Abdominal Pain Stated Complaint: abdominal pain Time Seen by Provider: 12/21/22 09:03 Source: patient Mode of arrival: ambulatory Limitations: no limitations History of Present Illness HPI narrative: Patient is a 32-year-old female with a history of chronic anemia, presenting to the emergency department for evaluation of right-sided lower abdominal pain. Patient reports a history of constant pain over the past week which is aching in nature. Patient does report radiation to the flank. She denies associated fever, chills, nausea or vomiting. She denies dysuria or hematuria. No constipation or diarrhea. Patient denies abdominal distention. She denies history of nephrolithiasis or appendectomy in the past. Patient denies history of abdominal surgeries. She does report heavy lifting and states that the pain is relieved when she is at rest, worsened with any movement. She denies any rash or bruising overlying the area. No recent fall or injury. Related Data Allergies Allergy/AdvReac Type Severity Reaction Status Date / Time No Known Allergies Allergy Unknown Verified 12/21/22 08:14 Review of Systems Review of Systems: CONSTITUTIONAL: Denies fever, chills, or sweats. EYES: Denies visual changes, redness, or discharge. ENT: Denies rhinorrhea, congestion, sore throat, or otalgia. CARDIOVASCULAR: Denies chest pain, palpitations, or edema. RESPIRATORY: Denies cough or dyspnea. GASTROINTESTINAL: Reports right lower quadrant abdominal pain, denies nausea, vomiting or diarrhea SKIN: Denies rash or itching. MUSCULOSKELETAL: Denies back pain, joint pain, or myalgia. NEUROLOGIC: Denies headache, numbness, or weakness. [facility] Past Medical History Medical History (Updated 12/21/22 @ 10:24 by Rachel Vizcarra MD) Overweight (BMI 25.0-29.9) Renal colic on right side Umbilical hernia Surgical History Surgical History History of delivery 2013 History of ventral hernia repair 09/16/2021 - laparoscopic ventral incisional hernia repair with mesh Family History Family History Mother Hypertension Thyroid condition Other Cancer Diabetes mellitus Social History Social History Smoking status: Current some day smoker Tobacco type: cigarettes Second hand tobacco smoke exposure: No Alcohol intake: current Alcohol use details: 10/MONTH Substance use: former Substance use type: marijuana Last use: 08/08/21 Living arrangements: with family Additional living arrangements comments: CHILDREN Gender identity (if verbalized by the patient): Female Spiritual care concerns: No Exam Narrative: GENERAL: Awake, alert, conversant HEAD: Normocephalic, atraumatic. EYES: PERRLA and EOMI. ENT: Nares clear, no rhinorrhea or epistaxis. Mucous membranes moist. NECK: Supple. CHEST: No respiratory distress, breathing even and non labored HEART: Regular rate, sinus rhythm ABDOMEN:Non distended, tender in the RLQ, no rebound, rigidity or guarding EXTREMITIES: Normal range of motion. No edema. SKIN: Warm, dry, no rash. NEURO:No focal deficits. Alert and oriented x3 Course Vital Signs Vital signs: Vital Signs Temperature 36.9 C 12/21/22 08:33 Pulse Rate 79 12/21/22 08:33 Respiratory Rate 16 12/21/22 08:33 Blood Pressure 118/68 12/21/22 08:33 Pulse Oximetry 100 12/21/22 08:33 Oxygen Delivery Room Air 12/21/22 08:33 Temperature 36.9 C 12/21/22 08:33 Pulse Rate 79 12/21/22 08:33 Respiratory Rate 16 12/21/22 08:33 Blood Pressure 118/68 12/21/22 08:33 Pulse Oximetry 100 12/21/22 08:33 Oxygen Delivery Room Air 12/21/22 08:33 MDM - Abdominal Pain MDM Narrative Medical decision making narrative: Patient presenting for evaluation of right-sided abdom
[2022-12-21 09:17] LABS: Anisocytosis 1+ (NORMAL); Hypochromasia 1+ (NORMAL); Microcytosis 1+ (NORMAL); Platelet Estimate Adequate (Adequate); Schistocytes None Seen (NORMAL)
[2022-12-21] MEDS: SODIUM CHLORIDE 0.9% IV 1,000 ML 999 ML IV CONT (09:19)
[2022-12-21] MEDS: ONDANSETRON INJ 4 MG/2 ML VIAL IV PUSH (09:19)
[2022-12-21] MEDS: ACETAMINOPHEN 500 MG TABLET 1000 MG PO (09:20)
[2022-12-21] MEDS: MORPHINE SULFATE (*CRX) 4 MG/ML INJ IV PUSH (09:20)
[2022-12-21 09:25] LABS: Add Urine Microscopic? YES
[2022-12-21 11:14] VITALS: BP 122/72; PULSE 70; RESP 16; O2SAT 100
== END 2022-12-21 11:16 | disposition home or self-care (01) ==
PROVIDERS: Emergency Provider Emergency Medicine
DX: N13.2 Hydronephrosis with renal and ureteral calculous obstruction (principal); D64.9 Anemia, unspecified; E66.3 Overweight; Z68.23 Body mass index [BMI] 23.0-23.9, adult; F17.210 Nicotine dependence, cigarettes, uncomplicated; Z97.5 Presence of (intrauterine) contraceptive device
CPT/HCPCS: 36415; 74018; 74177; 80053; 81001; 81025; 83690; 85025; 96361; 96374; 96375; 99284; A9270; J2270; J2405; J7030; Q9967

== ENCOUNTER 2023-02-16 08:44 | Emergency (ER) | payer OTHER, SELFPAY ==
--- NOTE | ~2023-02-16 | CT_ITS ---
EXAMINATION: CT abdomen pelvis w con DATE: 02/16/2023 12:46 INDICATION: Lower abdominal pain TECHNIQUE: Computed tomography (CT) of the abdomen and pelvis was performed with 100 mL Omnipaque-350 intravenous contrast. Automated exposure control and iterative reconstruction technique were employe d. The dose-length product was 319.80 mGy-cm. COMPARISON: 12/21/2022 FINDINGS: Lung bases are clear. Heart size is normal. No pericardial or pleural effusion. Liver, gallbladder, s pleen, pancreas, bilateral adrenal glands and kidneys are normal. Normal appendix in the deep right h emipelvis. Mild scattered diverticulosis. There is prominent inflammatory stranding surrounding a div erticulum at the junction of the descending and sigmoid colon consistent with diverticulitis. No sergei l obstruction. Decompressed bladder is unremarkable. Retroverted uterus and bilateral adnexa are unre markable. The prior IUD has been removed. Small amount of likely physiologic or reactive free fluid i n the deep pelvis. No abscess or free intraperitoneal gas. Postoperative change of prior umbilical he rnia mesh repair. Bones are unremarkable. IMPRESSION: 1. Radiographically uncomplicated diverticulitis at the junction of the descending and sigmoid colon. Reviewed, dictated and finalized at location A. IMPRESSION: 1. Radiographically uncomplicated diverticulitis at the junction of the descend ing and sigmoid colon.
[2023-02-16 08:55] VITALS: BP 121/77; PULSE 85; RESP 16; TEMP 36.6; O2SAT 100
[2023-02-16 09:16] LABS: Basophils Percent Auto 0.2 % (0.2-1.2); Eosinophils Percent Auto 0.2 % (0-4.4); Hematocrit 33.3 % (37.0-47.0); Hemoglobin 9.9 g/dL (12.0-15.0); Immature Granulocyte Absolute 0.05 K/mm3 (0.00-0.031); Immature Granulocyte Percent A 0.6 % (0-0.5); Lymphocytes Absolute Auto 1.87 K/mm3 (0.9-3.2); Lymphocytes Percent Auto 22.1 % (18.3-44.2); Mean Corpuscular HGB Conc 29.7 g/dl (32-36); Mean Corpuscular Volume 80.8 fl (80-100); Mean Platelet Volume 10.5 fl (7.4-10.4); Monocytes Absolute Auto 0.5 K/mm3 (0.1-0.6); Monocytes Percent Auto 6.1 % (2.6-8.5); Neutrophils Percent Auto 70.8 % (45.5-73.1); Platelet Count Result 301 k/mm3 (150-375); Red Blood Count 4.12 M/mm3 (4.2-5.4); Red Cell Distribution Width 15.4 % (11.5-14.5); White Blood Count 8.5 K/mm3 (4.5-10.0)
[2023-02-16 09:21] LABS: Alanine Aminotransferase 22 U/L (6-35); Albumin Level 4.4 g/dL (3.5-5.1); Alkaline Phosphatase 64 U/L (38-126); Anion Gap 7 mmol/L (8-16); Aspartate Amino Transferase 29 U/L (14-36); Bilirubin,Total 0.6 mg/dL (0.2-1.3); Blood Urea Nitrogen 9 mg/dL (7-17); Calcium 8.4 mg/dL (8.4-10.2); Carbon Dioxide 26 mmol/L (22-30); Chloride 106 mmol/L (98-107); Estimated CRCL calculation 84 ml/min; Estimated Glomerular Filt Rate > 60; Glucose 98 mg/dL (65-110); Lipase 113 U/L (23-300); Potassium 3.7 mmol/L (3.4-5.0); Sodium 139 mmol/L (137-145)
[2023-02-16 09:25] LABS: Appearance Urine Clear (Clear); Bacteria Urine 1+ /hpf; Bilirubin Urine Negative (Negative); Blood Urine 3+ (Negative); Color Urine Yellow (Yellow); Glucose Urine UA Negative (Negative); Ketones Urine Trace mg/dL (Negative); Leukocyte Esterase Ur Negative LEU/UL (Negative); Nitrate Urine Negative (Negative); Non Pathogenic Casts 0-2; Protein Urine 1+ mg/dL (Negative); Specific Grav Ur 1.033 (1.001-1.035); Squamous Epithelial Cell Urine Few /hpf (Few); pH Urine 5.5 (5.0-9.0)
[2023-02-16 09:52] LABS: Add Urine Microscopic? YES
[2023-02-16 09:57] LABS: Platelet Estimate Adequate (Adequate)
[2023-02-16 09:58] LABS: Anisocytosis 2+ (NORMAL); Hypochromasia 1+ (NORMAL); Schistocytes None Seen (NORMAL)
[2023-02-16 11:16] VITALS: BP 121/85; PULSE 64; RESP 14; O2SAT 100
--- NOTE | 2023-02-16 12:08 | ED.GENADULT ---
HPI - General Adult General Chief complaint: Abdominal Pain Stated complaint: abd pain Time Seen by Provider: 02/16/23 11:16 History of Present Illness HPI narrative: 32-year-old female presented the emergency department for evaluation of lower abdominal cramping. Patient states symptoms have been ongoing for the past few days. Patient denies any prior history of constipation patient that she has been having some associated nausea and decreased appetite. Related Data Allergies Allergy/AdvReac Type Severity Reaction Status Date / Time No Known Allergies Allergy Unknown Verified 12/21/22 08:14 Review of Systems Review of Systems: All systems reviewed & are unremarkable except as noted in HPI and below PMFSH Past Medical History Medical History (Updated 02/16/23 @ 13:33 by Alberto Loyola MD) Overweight (BMI 25.0-29.9) Renal colic on right side Umbilical hernia Surgical History Surgical History History of delivery 2013 History of ventral hernia repair 09/16/2021 - laparoscopic ventral incisional hernia repair with mesh Family History Family History Mother Hypertension Thyroid condition Other Cancer Diabetes mellitus Social History Social History Smoking status: Current some day smoker Tobacco type: cigarettes Second hand tobacco smoke exposure: No Alcohol intake: current Alcohol use details: 10/MONTH Substance use: former Substance use type: marijuana Last use: 08/08/21 Living arrangements: with family Additional living arrangements comments: CHILDREN Gender identity (if verbalized by the patient): Female Spiritual care concerns: No Exam Narrative: APPEARANCE: Well appearing, no pain, no distress, well-nourished. HEAD: normocephalic, atraumatic. EYES: PERRLA/EOMI, conjunctivae clear. NOSE: Normal no drainage EARS:TMS clear with good light reflex. THROAT: Pharynx clear, no exudate. NECK: Supple. No adenopathy, no masses. RESPIRATORY: Airway patent, respirations nonlabored. Clear to auscultation bilaterally, no rales, rhonchi, wheezing. CARDIOVASCULAR: Regular rate and rhythm without murmurs rubs or gallops. ABDOMINAL: Soft, normal bowel sounds, nondistended, lower abdominal tenderness to palpation MUSCULOSKELETAL: Moves all extremities. Strength/ROM intact, No edema, No calf tenderness. NEURO: Alert. Cranial nerves II through XII intact. PSYCHIATRIC: Normal affect/mood. Course Course Emergency Course: 32-year-old female lower abdominal tenderness to palpation pain. Patient is afebrile with no leukocytosis patient's CMP is similar to baseline. UA was negative for nitrates and leuk esterase. CT did show evidence of uncomplicated diverticulitis. Patient was started on Augmentin and discharged home with Augmentin. Patient was also updated on the results of her work-up and encouraged of close follow-up with GI. All questions and concerns were addressed. Vital Signs Vital signs: Vital Signs Temperature 97.9 F 02/16/23 08:55 Pulse Rate 85 02/16/23 08:55 Respiratory Rate 16 02/16/23 08:55 Blood Pressure 121/77 02/16/23 08:55 Pulse Oximetry 100 02/16/23 08:55 Oxygen Delivery Room Air 02/16/23 08:55 Temperature 97.9 F 02/16/23 08:55 Pulse Rate 65 02/16/23 13:47 Respiratory Rate 14 02/16/23 13:47 Blood Pressure 113/71 02/16/23 13:47 Pulse Oximetry 99 02/16/23 13:47 Oxygen Delivery Room Air 02/16/23 08:55 Medical Decision Making Differential Diagnosis Differential Diagnosis: Colitis, diverticulitis, appendicitis, biliary colic Vital Signs Vital Signs: Vital Signs Temperature 97.9 F 02/16/23 08:55 Pulse Rate 85 02/16/23 08:55 Respiratory Rate 16 02/16/23 08:55 Blood Pressure 121/77 02/16/23 08:55 Pulse Oximetry 100 02/16/23
[2023-02-16] MEDS: ONDANSETRON INJ 4 MG/2 ML VIAL IV PUSH (12:25)
[2023-02-16] MEDS: HYDROmorphone HCL INJ (*CRX) 1 MG/ML SYR 0.5 MG IV PUSH (12:25)
[2023-02-16] MEDS: SODIUM CHLORIDE 0.9% IV 1,000 ML 999 ML IV CONT (12:25)
[2023-02-16] MEDS: AMOXICILLIN/CLAVULANATE K 875-125 MG TAB 1 TABLET PO (13:44)
[2023-02-16 13:47] VITALS: BP 113/71; PULSE 65; RESP 14; O2SAT 99
== END 2023-02-16 13:48 | disposition home or self-care (01) ==
PROVIDERS: Emergency Provider Emergency Medicine
DX: K57.32 Diverticulitis of large intestine without perforation or abscess without bleeding (principal); E66.3 Overweight; Z68.23 Body mass index [BMI] 23.0-23.9, adult; F17.210 Nicotine dependence, cigarettes, uncomplicated
CPT/HCPCS: 36415; 74177; 80053; 81001; 81025; 83690; 85025; 87086; 96361; 96374; 96375; 99284; A9270; J1170; J2405; J7030; Q9967

== ENCOUNTER 2023-02-24 16:20 | Emergency (ER) | payer OTHER, SELFPAY ==
[2023-02-24] VITALS (10 sets, daily range): BP systolic 116–118; BP diastolic 69–79; PULSE 83–90; RESP 13–24; TEMP 36.7; O2SAT 98–100
--- NOTE | ~2023-02-24 | CT_ITS ---
EXAMINATION: CT abdomen pelvis w con DATE: 02/24/2023 18:54 INDICATION: lower abdominal pain following diverticulitis TECHNIQUE: Computed tomography (CT) of the abdomen and pelvis was performed with 100 mL Omnipaque-350 intravenous contrast. Automated exposure control and iterative reconstruction technique were employe d. The dose-length product was 314.28 mGy-cm. COMPARISON: 02/16/2023. FINDINGS: Lower thorax: Unremarkable Liver: Normal. Biliary/Gallbladder: Gallbladder is partially collapsed. No bile duct dilation. Pancreas: No mass or duct dilation. Spleen: Normal. Adrenals:No mass. Kidneys: No mass, stone, or hydronephrosis. GI tract: Mild distal esophageal and gastric wall edema. No small or large bowel dilation. Normal em endix. Similar, slightly more dense focal inflammatory change at the junction of the distal descendin g colon and proximal sigmoid colon. Diverticulosis. Mesentery/Peritoneum: No ascites, mass, or free air. Retroperitoneum: No mass. Pelvis: Decompressed urinary bladder. Retroverted uterus, with possible scar. Small volume free pelvic fluid, within physiologic range. Soft Tissues: Prior umbilical hernia repair. Likely prior scar. Bones: No acute osseous finding. IMPRESSION: Esophagitis/gastritis. Persistent focus of diverticulitis at the junction of the descending and sigmo id colon, with increased interval induration. No interval abscess development. Otherwise, no acute ab dominopelvic process detected. Reviewed, dictated and finalized at location K. IMPRESSION: Esophagitis/gastritis. Persistent focus of diverticulitis at the junction of th e descending and sigmoid colon, with increased interval induration. No interval abscess development. Otherwise, no acute abdominopelvic process detected.
[2023-02-24 16:59] LABS: Basophils Percent Auto 0.2 % (0.2-1.2); Eosinophils Percent Auto 0.2 % (0-4.4); Hemoglobin 9.5 g/dL (12.0-15.0); Immature Granulocyte Absolute 0.04 K/mm3 (0.00-0.031); Immature Granulocyte Percent A 0.3 % (0-0.5); Lymphocytes Absolute Auto 1.89 K/mm3 (0.9-3.2); Lymphocytes Percent Auto 15.2 % (18.3-44.2); Mean Corpuscular HGB Conc 29.7 g/dl (32-36); Mean Corpuscular Hemoglobin 23.6 pg (26-34); Mean Corpuscular Volume 79.4 fl (80-100); Mean Platelet Volume 10.8 fl (7.4-10.4); Monocytes Absolute Auto 0.6 K/mm3 (0.1-0.6); Monocytes Percent Auto 5.1 % (2.6-8.5); Neutrophils Absolute Auto 9.8 K/mm3 (1.3-6.7); Platelet Count Result 281 k/mm3 (150-375); Red Blood Count 4.03 M/mm3 (4.2-5.4); White Blood Count 12.4 K/mm3 (4.5-10.0)
[2023-02-24 17:01] LABS: Appearance Urine Clear (Clear); Bilirubin Urine Negative (Negative); Blood Urine Negative (Negative); Color Urine Yellow (Yellow); Glucose Urine UA Negative (Negative); Ketones Urine Negative (Negative); Leukocyte Esterase Ur Negative LEU/UL (Negative); Nitrate Urine Negative (Negative); Protein Urine Negative (Negative); Specific Grav Ur 1.011 (1.001-1.035); pH Urine 7.5 (5.0-9.0)
[2023-02-24 17:07] LABS: Add Urine Microscopic? NO
[2023-02-24 17:09] LABS: Alanine Aminotransferase 23 U/L (6-35); Albumin Level 4.2 g/dL (3.5-5.1); Alkaline Phosphatase 68 U/L (38-126); Anion Gap 6 mmol/L (8-16); Aspartate Amino Transferase 52 U/L (14-36); Bilirubin,Total 0.4 mg/dL (0.2-1.3); Blood Urea Nitrogen 8 mg/dL (7-17); Calcium 8.7 mg/dL (8.4-10.2); Carbon Dioxide 31 mmol/L (22-30); Chloride 101 mmol/L (98-107); Estimated CRCL calculation 84 ml/min; Estimated Glomerular Filt Rate > 60; Glucose 86 mg/dL (65-110); Lipase 123 U/L (23-300); Potassium 3.7 mmol/L (3.4-5.0); Sodium 138 mmol/L (137-145)
--- NOTE | 2023-02-24 17:21 | ED.ABDPAIN ---
HPI - Abdominal Pain General Chief Complaint: Abdominal Pain Stated Complaint: abdominal pain - seen last week in this ER Time Seen by Provider: 02/24/23 16:58 Source: patient Mode of arrival: ambulatory Limitations: no limitations History of Present Illness HPI narrative: This is a 32-year-old female who presents to the ED with chief complaint of lower abdominal pain for 2 days. Patient states she was seen here last week in the ED and diagnosed with diverticulitis. She states that that pain improved but now she is having a different pain in the lower abdomen. She associates it with feeling bloated and describes it as an expansion like pain. She states that it is relieved whenever she passes gas but then returns afterwards. Reports multiple episodes of flatulence. She states she still has a couple of days left of her Augmentin. Again she confirms that the pain from the previous visit had completely resolved. Had an episode of loose stools after taking MiraLAX yesterday. Otherwise bowel movements have been regular. No nausea or vomiting. Denies fevers, bloody stools, vomiting, nausea, chest pain, shortness of breath, cough. Denies urinary symptoms. Patient states that she has gotten contact with the GI follow-up but they have not given her an appointment yet and does not know what to do for this pain. Related Data Allergies Allergy/AdvReac Type Severity Reaction Status Date / Time No Known Allergies Allergy Unknown Verified 02/24/23 16:21 Review of Systems Review of Systems: CONSTITUTIONAL: Denies fever, chills, or sweats. EYES: Denies visual changes, redness, or discharge. ENT: Denies rhinorrhea, congestion, sore throat, or otalgia. CARDIOVASCULAR: Denies chest pain, palpitations, or edema. RESPIRATORY: Denies cough or dyspnea. GASTROINTESTINAL: See HPI GENITOURINARY: Denies dysuria or hematuria. SKIN: Denies rash or itching. MUSCULOSKELETAL: Denies back pain, joint pain, or myalgia. NEUROLOGIC: Denies headache, numbness, dizziness, or weakness. PSYCHIATRIC: Denies anxiety or depression. [facility] Past Medical History Medical History (Updated 02/24/23 @ 19:37 by Syed Osorio PA-C) Overweight (BMI 25.0-29.9) Renal colic on right side Umbilical hernia Surgical History Surgical History History of delivery 2013 History of ventral hernia repair 09/16/2021 - laparoscopic ventral incisional hernia repair with mesh Family History Family History Mother Hypertension Thyroid condition Other Cancer Diabetes mellitus Social History Social History Smoking status: Current some day smoker Tobacco type: cigarettes Second hand tobacco smoke exposure: No Alcohol intake: current Alcohol use details: 10/ Substance use: former Substance use type: marijuana Last use: 08/08/21 Living arrangements: with family Additional living arrangements comments: CHILDREN Gender identity (if verbalized by the patient): Female Spiritual care concerns: No Exam Narrative: GENERAL: Well-appearing, well-nourished, and in no acute distress. Resting comfortably. HEAD: Normocephalic, atraumatic. EYES: PERRLA and EOMI. ENT: Nares clear, no rhinorrhea or epistaxis. Mucous membranes moist. Oropharynx without tonsillar hypertrophy exudate or other lesions. NECK: Supple. No adenopathy or masses. CHEST: No respiratory distress. Clear to auscultation. No wheezes rales or rhonchi HEART: Regular rate and rhythm. No murmur heard. Normal peripheral pulses. ABDOMEN: Very mild lower abdomen distention. Mild lower abdominal tenderness. Soft, otherwise nontender, normal active bowel sounds. Negative peritoneal signs. Negative flank pain. MSK: Normal range of motion. No edema. SKIN: Warm, dry, no rash. NEURO: Alert and oriented x3. No focal
[2023-02-24] MEDS: SIMETHICONE 125 MG CHEW TAB PO (17:51)
[2023-02-24] MEDS: HYDROcodone/acetaminophen (*CRX) 5-325 MG TABLET 1 TAB PO (20:00)
[2023-02-24] MEDS: CIPROFLOXACIN 500 MG TAB PO (20:00)
[2023-02-24] MEDS: ONDANSETRON HCL ODT 4 MG TABLET PO (20:00)
[2023-02-24] MEDS: metroNIDAZOLE 250 MG TABLET 500 MG PO (20:00)
== END 2023-02-24 20:04 | disposition home or self-care (01) ==
PROVIDERS: Emergency Medicine; Emergency Provider Physician Assistant
DX: K57.32 Diverticulitis of large intestine without perforation or abscess without bleeding (principal); E66.3 Overweight; Z68.24 Body mass index [BMI] 24.0-24.9, adult; F17.210 Nicotine dependence, cigarettes, uncomplicated; K20.90 Esophagitis, unspecified without bleeding; K29.70 Gastritis, unspecified, without bleeding
CPT/HCPCS: 36415; 74177; 80053; 81003; 81025; 83690; 85025; 96374; 99284; A9270; J0131; Q9967

== ENCOUNTER 2023-04-22 08:40 | Emergency (ER) | payer OTHER, SELFPAY ==
[2023-04-22 08:48] VITALS: BP 122/88; PULSE 78; RESP 16; TEMP 36.9; O2SAT 99
--- NOTE | 2023-04-22 08:48 | ED.URI ---
HPI - URI/Sore Throat General Chief Complaint: Upper Respiratory Infection Stated Complaint: throat pain Time Seen by Provider: 04/22/23 09:00 Source: patient Mode of arrival: ambulatory Limitations: no limitations History of Present Illness HPI Narrative: Patient is a 32-year-old female who presents with sore throat since the end of February. Patient was in [place] and states she got ocean water in her mouth. Patient states she has had sore throat since with initial loss of voice. Patient states she was treated for strep in February ans did not finish antibiotics. Reports taking 3 doses of amoxicillin April 07 of April 08 and April 19. States it seemed to help her sore throat. Has tried [id number] cold medicine but it did not work. Does not take any allergy medicines daily. Still able eat and drink normally. Denies any fever, chills, ear pain, congestion, cough, shortness breath, nausea, vomiting, diarrhea. Related Data Home Medications Medication Instructions Recorded Confirmed spironolactone 50 mg tablet 50 mg PO DAILY 04/22/23 04/22/23 Allergies Allergy/AdvReac Type Severity Reaction Status Date / Time No Known Allergies Allergy Unknown Verified 04/22/23 08:49 Review of Systems Review of Systems: All systems reviewed & are unremarkable except as noted in HPI and below Constitutional: Constitutional: Denies body ache(s), Denies chills, Denies fatigue, Denies fever(s), Denies headache(s), Denies malaise and Denies weakness Eyes: Eyes: Denies blurry vision, Denies itchy eyes and Denies loss of vision ENT: Denies otalgia, Denies headache(s), Denies nasal congestion, Denies sinus pain and Reports sore throat Cardiovascular: Cardiovascular: Denies chest pain, Denies irregular heart rhythm and Denies dyspnea Respiratory: Respiratory: Denies cough and Denies dyspnea Gastrointestinal: Gastrointestinal: Denies abdominal pain, Denies diarrhea, Denies nausea and Denies vomiting Musculoskeletal: Musculoskeletal: Denies back pain, Denies myalgias and Denies arthralgias Integumentary/Breasts: Skin/Breast: Denies pruritus and Denies rash Neurologic: Denies headache(s), Denies loss of vision and Denies weakness Psychiatric: Psychiatric: Reports no additional psychiatric complaints Endocrine: Endocrine: Denies fatigue Allergic/Immunologic: Allergic/Immunologic: Denies itchy eyes PMFSH Past Medical History Medical History (Updated 04/22/23 @ 09:43 by Ivone Carson APRN) Overweight (BMI 25.0-29.9) Renal colic on right side Umbilical hernia Surgical History Surgical History History of delivery 2013 History of ventral hernia repair 09/16/2021 - laparoscopic ventral incisional hernia repair with mesh Family History Family History Mother Hypertension Thyroid condition Other Cancer Diabetes mellitus Social History Social History Smoking status: Current some day smoker Tobacco type: cigarettes Second hand tobacco smoke exposure: No Alcohol intake: current Alcohol use details: 10/MONTH Substance use: former Substance use type: marijuana Last use: 08/08/21 Living arrangements: with family Additional living arrangements comments: CHILDREN Gender identity (if verbalized by the patient): Female Spiritual care concerns: No Comments At time of signature, agree with nursing past medical, surgical, social and family history. There is no relevant family history pertinent to the presenting complaint. Exam Const: General: cooperative, healthy appearing, comfortable, no acute distress and well nourished Nutritional Appearance: well nourished Orientation/consciousness: patient oriented x3 Limitations: no limitations HENMT: Head: normal to inspection, normocephalic and atraumatic Ears: hearing grossly normal miladys
== END 2023-04-22 10:09 | disposition home or self-care (01) ==
PROVIDERS: Emergency Provider Nurse Practitioner Family; PCP Emergency Medicine
DX: J02.9 Acute pharyngitis, unspecified (principal); H61.23 Impacted cerumen, bilateral; F17.210 Nicotine dependence, cigarettes, uncomplicated
CPT/HCPCS: 69209; 87081; 87880; 99213; G0463

== ENCOUNTER 2023-05-01 09:17 | Outpatient (CLI) | payer OTHER, SELFPAY ==
[2023-05-01 09:50] LABS: Iron 49 ug/dL (37-170)
[2023-05-01 09:59] LABS: Percent Iron Saturation 9 % (20-50)
== END 2023-05-01 09:18 | disposition home or self-care (01) ==
LOC: ANHLAB 09:19
PROVIDERS: PCP Emergency Medicine; Visit Provider Internal Medicine Gastroenterology
DX: D64.9 Anemia, unspecified (principal)
CPT/HCPCS: 36415; 83540; 83550

== ENCOUNTER 2023-05-09 00:30 | Day surgery (SDC) | payer OTHER, SELFPAY ==
[2023-05-07 07:57] VITALS: BMI 24.2
--- NOTE | 2023-05-08 17:10 | PM.HPGS ---
History of Present Illness History of Present Illness Consent: Risks, benefits, and alternatives have been discussed and questions answered. Patient agrees to proceed with procedure. Chief complaint: anemia, diverticulitis of large intestine Narrative: Ibis Wyatt is a 32 year old female who?was seen in the emergency room in February with acute lower abdominal pain.? CT scan confirmed acute diverticulitis.? She was discharged on Augmentin.? Apparently hospitalization was offered but she declined.? Eight days later she was finished with her antibiotics but still having pain that was more of a tight sensation.? Repeat CT in the emergency room that day showed ?persistent focus of diverticulitis with an increase in induration.? She was sent home on Cipro and Flagyl.? The pain has basically subsided although she is still somewhat uncomfortable at times in the lower abdomen.? She has also noticed a change in her bowel movements.? Lately her stools have been like itzel clumped together.??She also has been found to be anemic with a hemoglobin of 9.5 Review of Systems Review of Systems: All systems reviewed & are unremarkable except as noted in HPI and below PMFSH Past Medical History Medical History Overweight (BMI 25.0-29.9) Renal colic on right side Umbilical hernia Surgical History Surgical History History of delivery 2013 History of ventral hernia repair 09/16/2021 - laparoscopic ventral incisional hernia repair with mesh Family History Family History Mother Hypertension Thyroid condition Other Cancer Diabetes mellitus Social History Social History Smoking status: Never smoker Tobacco type: cigarettes Second hand tobacco smoke exposure: No Alcohol intake: current Alcohol use details: 10/MONTH Substance use: current Substance use type: marijuana Last use: 05/06/23 Living arrangements: with family Additional living arrangements comments: CHILDREN Gender identity (if verbalized by the patient): Female Spiritual care concerns: No Meds Home Medications and Allergies Home Medications Medication Instructions Recorded Confirmed Type spironolactone 50 mg tablet 50 mg PO DAILY 04/22/23 05/07/23 History Allergies Allergy/AdvReac Type Severity Reaction Status Date / Time No Known Allergies Allergy Unknown Verified 05/09/23 12:35 Exam Const: General: alert Orientation/consciousness: patient oriented x3 Resp: Auscultation: clear to auscultation bilaterally Cardio: Rhythm: regular rhythm GI: GI Palp: Yes Soft to palpation and No Tenderness to palpation present (GI) Neuro: General: patient oriented x3 Assessment and Plan Assessment and plan (1) Anemia: Code(s): D64.9 - Anemia, unspecified Status: Acute Assessment and Plan: Colonoscopy with possible biopsy or polypectomy or cautery or injection of substances.
[2023-05-09 12:36] VITALS: BP 118/80; PULSE 74; RESP 18; TEMP 36.2; O2SAT 100
--- NOTE | 2023-05-09 12:52 | WPDANESEPPF ---
Anes - Initial Pre Proc Eval Procedure: Operation Date: 05/09/23 13:45 Proposed Procedures p Colonoscopy - Derek Thompson MD Date/Time: 05/09/23 12:52 Surgeon: Derek Thompson MD Pre Op Diagnosis: anemia, diverticulitis of large intestine Patient Data Age: 32 Gender: F Height: 1.68 m Weight: 62.8 kg Last Vital Signs Temp 97.2 F L 05/09/23 12:36 Pulse 74 05/09/23 12:36 Resp 18 05/09/23 12:36 BP 118/80 05/09/23 12:36 Pulse Ox 100 05/09/23 12:36 O2 Del Method Room Air 05/09/23 12:36 Allergies Allergy/AdvReac Type Severity Reaction Status Date / Time No Known Allergies Allergy Unknown Verified 05/09/23 12:35 Home Medications Medication Instructions Recorded Confirmed Type spironolactone 50 mg tablet 50 mg PO DAILY 04/22/23 05/07/23 History Patient hx anesthesia problems: none Family hx anesthesia problems: none Results Review: All pre-operative results and documents have been reviewed as part of the pre-operative evaluation. [facility] Past Medical History Medical History Overweight (BMI 25.0-29.9) Renal colic on right side Umbilical hernia Surgical History Surgical History History of delivery 2013 History of ventral hernia repair 09/16/2021 - laparoscopic ventral incisional hernia repair with mesh Family History Family History Mother Hypertension Thyroid condition Other Cancer Diabetes mellitus Social History Social History Smoking status: Never smoker Tobacco type: cigarettes Second hand tobacco smoke exposure: No Alcohol intake: current Alcohol use details: 10/MONTH Substance use: current Substance use type: marijuana Last use: 05/06/23 Living arrangements: with family Additional living arrangements comments: CHILDREN Gender identity (if verbalized by the patient): Female Spiritual care concerns: No Anes - Eval Final PreProcedure Day of Procedure 05/09/23 12:52 Patient weight: normal Heart: regular rate and rhythm Lungs: clear to auscultation Airway: Mallampati scale class II Neurological: alert and oriented Last oral intake: >/= 8 hours ASA classification: II Emergent: no Anesthetic plan: proceed Anesthesia type and monitoring: general GIVS and standard monitoring Results Review: All pre-operative results and documents have been reviewed as part of the pre-operative evaluation. Informed Consent: The patient's anesthetic plan and its attendant risks and benefits were discussed with the patient/family/POA. Questions were solicited and answers provided to the satisfaction of the patient/family/POA.
[2023-05-09] MEDS: LACTATED RINGERS 1,000 ML 150 ML IV CONT (12:56)
[2023-05-09 14:25] VITALS: BP 97/65; PULSE 80; RESP 18; O2SAT 100
[2023-05-09 14:35] VITALS: BP 113/79; PULSE 77; RESP 16; O2SAT 100
[2023-05-09 14:45] VITALS: BP 123/89; PULSE 83; RESP 18; O2SAT 100
== END 2023-05-09 14:58 | disposition home or self-care (01) ==
PROVIDERS: PCP Emergency Medicine; Visit Provider Internal Medicine Gastroenterology
PROC: 0DJD8ZZ Inspection of Lower Intestinal Tract, Via Natural or Artificial Opening Endoscopic (ICD-10-PCS; CPT 45378; principal; 2023-05-09 13:45)
DX: Z12.11 Encounter for screening for malignant neoplasm of colon (principal); K62.1 Rectal polyp; K57.30 Diverticulosis of large intestine without perforation or abscess without bleeding; D64.9 Anemia, unspecified; F12.90 Cannabis use, unspecified, uncomplicated; Z87.19 Personal history of other diseases of the digestive system
CPT/HCPCS: 45385; 88305; J2704; J7120

== ENCOUNTER 2023-05-31 15:24 | Emergency (ER) | payer OTHER, SELFPAY ==
--- NOTE | 2023-05-31 15:34 | ED.URI ---
HPI - URI/Sore Throat General Chief Complaint: Upper Respiratory Infection Stated Complaint: Sore Throat Time Seen by Provider: 05/31/23 15:26 Source: patient Mode of arrival: ambulatory Limitations: no limitations History of Present Illness HPI Narrative: Patient patient is a 32-year-old female who presents with 3 weeks of sore throat and dry cough. Patient was seen 04/22 and diagnosed with viral infection. Patient has been taking [id number] medication as directed with no relief. Denies any fever, chills, ear pain, congestion, nausea, vomiting, diarrhea. Related Data Home Medications Medication Instructions Recorded Confirmed spironolactone 50 mg tablet 50 mg PO DAILY 04/22/23 05/31/23 Allergies Allergy/AdvReac Type Severity Reaction Status Date / Time No Known Allergies Allergy Unknown Verified 05/31/23 15:34 Review of Systems Review of Systems: All systems reviewed & are unremarkable except as noted in HPI and below Constitutional: Constitutional: Denies body ache(s), Denies chills, Denies fatigue, Denies fever(s), Denies headache(s), Denies malaise and Denies weakness Eyes: Eyes: Denies blurry vision, Denies itchy eyes and Denies loss of vision ENT: Denies otalgia, Denies headache(s), Denies nasal congestion, Denies sinus pain and Reports sore throat Cardiovascular: Cardiovascular: Denies chest pain, Denies irregular heart rhythm and Denies dyspnea Respiratory: Respiratory: Reports cough and Denies dyspnea Gastrointestinal: Gastrointestinal: Denies abdominal pain, Denies diarrhea, Denies nausea and Denies vomiting Musculoskeletal: Musculoskeletal: Denies back pain, Denies myalgias and Denies arthralgias Integumentary/Breasts: Skin/Breast: Denies pruritus and Denies rash Neurologic: Denies headache(s), Denies loss of vision and Denies weakness Psychiatric: Psychiatric: Reports no additional psychiatric complaints Endocrine: Endocrine: Denies fatigue Allergic/Immunologic: Allergic/Immunologic: Denies itchy eyes PMFSH Past Medical History Medical History Overweight (BMI 25.0-29.9) Renal colic on right side Umbilical hernia Surgical History Surgical History History of delivery 2013 History of ventral hernia repair 09/16/2021 - laparoscopic ventral incisional hernia repair with mesh Family History Family History Mother Hypertension Thyroid condition Other Cancer Diabetes mellitus Social History Social History Smoking status: Never smoker Tobacco type: cigarettes Second hand tobacco smoke exposure: No Alcohol intake: current Alcohol use details: 10/MONTH Substance use: current Substance use type: marijuana Last use: 05/06/23 Living arrangements: with family Additional living arrangements comments: CHILDREN Gender identity (if verbalized by the patient): Female Spiritual care concerns: No Comments At time of signature, agree with nursing past medical, surgical, social and family history. There is no relevant family history pertinent to the presenting complaint. Exam Const: General: cooperative, healthy appearing, comfortable, no acute distress and well nourished Nutritional Appearance: well nourished Orientation/consciousness: patient oriented x3 Limitations: no limitations HENMT: Head: normal to inspection, normocephalic and atraumatic Ears: hearing grossly normal bilaterally, external ears normal, TM's normal bilaterally, EAC's normal and no periauricular adenopathy Face/Nose/Sinus: Normal external nose present, Normal nasal mucous membranes and turbinates present, normal facial exam, sinuses nontender and face symmetric Face and sinus: normal facial exam, sinuses nontender and face symmetric Mouth: Yes Normal oral and palatal
[2023-05-31 15:35] VITALS: BP 115/75; PULSE 75; RESP 14; TEMP 37; O2SAT 100
== END 2023-05-31 16:18 | disposition home or self-care (01) ==
PROVIDERS: Emergency Provider Nurse Practitioner Family; PCP Emergency Medicine
DX: J06.9 Acute upper respiratory infection, unspecified (principal); R05.9 Cough, unspecified; F12.90 Cannabis use, unspecified, uncomplicated
CPT/HCPCS: 87081; 87880; 99213; G0463

== ENCOUNTER 2023-06-17 09:07 | Emergency (ER) | payer OTHER, SELFPAY ==
[2023-06-17 09:17] VITALS: BP 132/81; PULSE 87; RESP 16; TEMP 36.6; O2SAT 100
--- NOTE | 2023-06-17 09:47 | ED.URI ---
HPI - URI/Sore Throat General Chief Complaint: Upper Respiratory Infection Stated Complaint: Sore Throat and Congestion Time Seen by Provider: 06/17/23 09:28 Source: patient and RN notes reviewed Mode of arrival: ambulatory Limitations: no limitations History of Present Illness HPI Narrative: Patient presents today complaining of a 2 day history of rhinorrhea, dry throat, watery eyes, sneezing. She has been taking Benadryl, which has been providing some relief. Related Data Home Medications Medication Instructions Recorded Confirmed spironolactone 50 mg tablet 50 mg PO DAILY 04/22/23 06/17/23 Allergies Allergy/AdvReac Type Severity Reaction Status Date / Time No Known Allergies Allergy Unknown Verified 06/17/23 09:23 Review of Systems Review of Systems: CONSTITUTIONAL: Denies body aches, fever, chills, or sweats. EYES: Denies visual changes, redness, or discharge.+ watery eyes ENT: Denies congestion, sore throat, or otalgia.+ rhinorrhea, dry throat, sneezing CARDIOVASCULAR: Denies chest pain, palpitations, or edema. RESPIRATORY: Denies cough or dyspnea. GASTROINTESTINAL: Denies abdominal pain, nausea, vomiting, or diarrhea. GENITOURINARY: Denies dysuria or hematuria. SKIN: Denies rash, itching, or wounds. MUSCULOSKELETAL: Denies back pain, joint pain, or myalgia. NEUROLOGIC: Denies headache, numbness, tingling, or weakness. PSYCH: Denies depression or anxiety. [facility] Past Medical History Medical History Overweight (BMI 25.0-29.9) Renal colic on right side Umbilical hernia Surgical History Surgical History History of delivery 2014 History of ventral hernia repair 09/16/2021 - laparoscopic ventral incisional hernia repair with mesh Family History Family History Mother Hypertension Thyroid condition Other Cancer Diabetes mellitus Social History Social History Smoking status: Never smoker Tobacco type: cigarettes Second hand tobacco smoke exposure: No Alcohol intake: current Alcohol use details: 10/MONTH Substance use: current Substance use type: marijuana Last use: 05/06/23 Living arrangements: with family Additional living arrangements comments: CHILDREN Gender identity (if verbalized by the patient): Female Spiritual care concerns: No Comments At time of signature, I have reviewed and agree with nursing past medical, surgical, social and family history unless otherwise noted. Please see nursing chart for further information. There is no relevant family history pertinent to the presenting complaint Exam Narrative: GENERAL: Well-appearing, well-nourished, and in no acute distress. HEAD: Normocephalic, atraumatic. EYES: EOMI. No redness or drainage. Conjunctivae normal. ENT: Mucous membranes pink and moist. Nares congested. No rhinorrhea. TMs normal bilaterally. Throat mildly erythematous without edema or exudate. Uvula midline. NECK: Normal AROM. Supple. No lymphadenopathy. CHEST: No respiratory distress. Clear to auscultation. HEART: Regular rate and rhythm. No murmur appreciated. EXTREMITIES: Normal range of motion. No edema. SKIN: Warm, dry, no rash. Capillary refill normal. Normal skin turgor. NEURO: No focal deficits. Alert and oriented x3. Gait steady. PSYCH: Normal affect. No signs of depression or anxiety. Course Course Level of Care: Express Care Visit Vital Signs Vital signs: Vital Signs Temperature 97.8 F 06/17/23 09:17 Pulse Rate 87 06/17/23 09:17 Respiratory Rate 16 06/17/23 09:17 Blood Pressure 132/81 06/17/23 09:17 Pulse Oximetry 100 06/17/23 09:17 Oxygen Delivery Room Air 06/17/23 09:17 Temperature 97.8 F 06/17/23 09:17 Pulse Rate 87 06/17
== END 2023-06-17 09:53 | disposition home or self-care (01) ==
PROVIDERS: Emergency Provider Nurse Practitioner; PCP Emergency Medicine
DX: T78.49XA Other allergy, initial encounter (principal)
CPT/HCPCS: 99211; G0463

== ENCOUNTER 2024-01-12 09:13 | Emergency (ER) | payer OTHER, SELFPAY ==
--- NOTE | 2024-01-12 09:15 | ED.URI ---
HPI - URI/Sore Throat General Chief Complaint: Upper Respiratory Infection Stated Complaint: Sore Throat Time Seen by Provider: 01/12/24 09:15 Source: patient Mode of arrival: ambulatory Limitations: no limitations History of Present Illness HPI Narrative: Ibis is a 33-year-old female patient presenting to the clinic today with complaints of a sore throat x1 week. She reports she has had chills and body aches. States she has had hot cold flashes as well. Denies any runny nose or cough. Has taken some NyQuil for her symptoms. MD elicited complaint: sore throat and nasal congestion Related Data Allergies Allergy/AdvReac Type Severity Reaction Status Date / Time No Known Allergies Allergy Unknown Verified 01/12/24 09:18 Review of Systems Review of Systems: Pertinent positives per HPI. Patient denies any fever, chills, rash, headache, visual changes, dizziness, cough, shortness of breath, chest pain, palpitations, nausea, vomiting, diarrhea, constipation, abdominal pain, or any urinary issues. [facility] Past Medical History Medical History Overweight (BMI 25.0-29.9) Renal colic on right side Umbilical hernia Surgical History Surgical History History of delivery 2013 History of ventral hernia repair 09/16/2021 - laparoscopic ventral incisional hernia repair with mesh Family History Family History Mother Hypertension Thyroid condition Other Cancer Diabetes mellitus Social History Social History (Updated 01/12/24 @ 09:41 by Erich Blount APRN) Smoking status: Never smoker Second hand tobacco smoke exposure: No Alcohol intake: current Alcohol use details: 10/MONTH Substance use: current Substance use type: marijuana Last use: 05/06/23 Living arrangements: with family Additional living arrangements comments: CHILDREN Gender identity (if verbalized by the patient): Female Spiritual care concerns: No Comments At the time of my signature, I reviewed and agree with the nursing past medical, surgical, social, and family history. There is no relevant family history pertinent to the patient complaint. Exam Narrative: General: Well-developed, well nourished, in no apparent distress Head: Normocephalic, atraumatic Eyes: Pupils equally round and reactive to light bilaterally, EOM intact, sclera and conjunctive clear, no discharge, lids normal Ears: TMs intact and clear, ear canals clear, no drainage, grossly hearing normal. Nose: Nares patent, no discharge, no inflammation, no sinus tenderness. Mouth: Oral pharynx red without lesions or masses, good dentition, MMM. Neck: Supple, trachea midline, no enlargement of anterior or posterior cervical nodes, no thyroid masses or goiter palpable. Cardio: Regular rate and rhythm, s1 and s2 normal, no murmur appreciated. Resp: Clear to auscultation bilaterally, no rhonchi, rales, wheezing or rubs Course Course Emergency Course: Portions of this record may have been created with voice recognition software. Level of Care: Express Care Visit Vital Signs Vital signs: Vital signs reviewed MDM - URI/Sore Throat MDM Narrative Medical decision making narrative: At the time of visit patient is resting comfortably on the exam table. Patient appears to be nontoxic. Labs: Strep test was obtained and negative in the clinic today. Strep test was negative. We will send for culture. Plan: I suspect patient has viral pharyngitis. Supportive measures were discussed with the patient and they voiced understanding discharge instructions and agrees to treatment plan. Return precautions reviewed Differential Diagnosis Differential diagnosis: Likely upper respiratory infection, otitis media, sinusitis, viral infection, bronchitis, influenza, pharyngitis and o
[2024-01-12 09:22] VITALS: BP 120/71; PULSE 75; RESP 16; TEMP 37.2; O2SAT 100
== END 2024-01-12 09:39 | disposition home or self-care (01) ==
PROVIDERS: Emergency Provider Nurse Practitioner Family; PCP Emergency Medicine
DX: J02.9 Acute pharyngitis, unspecified (principal)
CPT/HCPCS: 87081; 87880; 99213; G0463

== ENCOUNTER 2024-01-13 10:09 | Emergency (ER) | payer OTHER, SELFPAY ==
[2024-01-13 10:20] VITALS: BP 112/70; PULSE 76; RESP 15; TEMP 36.6; O2SAT 100
--- NOTE | 2024-01-13 12:13 | PC.NURSE ---
See downtime charting for additional documentation.
[2024-01-13 12:36] LABS: Strep Group A RT-PCR NOT DETECTED (Negative)
[2024-01-13 12:37] LABS: Influenza A QL RT-PCR Negative (Negative); Influenza B QL RT-PCR Negative (Negative); RSV RNA, RT-PCR Negative (Negative); SARS-CoV-2 RNA PCR Negative (Negative)
[2024-01-13 13:17] VITALS: BP 115/76; PULSE 66; RESP 17; O2SAT 99
--- NOTE | 2024-01-22 06:58 | ED.GENADULT ---
HPI - General Adult General Chief complaint: Unspecified Stated complaint: sore throat Time Seen by Provider: 01/13/24 10:23 Related Data Allergies Allergy/AdvReac Type Severity Reaction Status Date / Time No Known Allergies Allergy Unknown Verified 01/12/24 09:18 [facility] Past Medical History Medical History Overweight (BMI 25.0-29.9) Renal colic on right side Umbilical hernia Surgical History Surgical History History of delivery 2013 History of ventral hernia repair 09/16/2021 - laparoscopic ventral incisional hernia repair with mesh Family History Family History Mother Hypertension Thyroid condition Other Cancer Diabetes mellitus Social History Social History (Updated 01/12/24 @ 09:41 by Erich Blount APRN) Smoking status: Never smoker Second hand tobacco smoke exposure: No Alcohol intake: current Alcohol use details: 10/MONTH Substance use: current Substance use type: marijuana Last use: 05/06/23 Living arrangements: with family Additional living arrangements comments: CHILDREN Gender identity (if verbalized by the patient): Female Spiritual care concerns: No Course Vital Signs Vital signs: Vital Signs Temperature 97.8 F 01/13/24 10:20 Pulse Rate 76 01/13/24 10:20 Respiratory Rate 15 01/13/24 10:20 Blood Pressure 112/70 01/13/24 10:20 Pulse Oximetry 100 01/13/24 10:20 Temperature 97.8 F 01/13/24 10:20 Pulse Rate 66 01/13/24 13:17 Respiratory Rate 17 01/13/24 13:17 Blood Pressure 115/76 01/13/24 13:17 Pulse Oximetry 99 01/13/24 13:17 Medical Decision Making Vital Signs Vital Signs: Vital Signs Temperature 97.8 F 01/13/24 10:20 Pulse Rate 76 01/13/24 10:20 Respiratory Rate 15 01/13/24 10:20 Blood Pressure 112/70 01/13/24 10:20 Pulse Oximetry 100 01/13/24 10:20 Temperature 97.8 F 01/13/24 10:20 Pulse Rate 66 01/13/24 13:17 Respiratory Rate 17 01/13/24 13:17 Blood Pressure 115/76 01/13/24 13:17 Pulse Oximetry 99 01/13/24 13:17 Lab Data Labs: Lab Results 01/13/24 Range/Units 11:30 Influenza A (RT-PCR) Negative (Negative) Influenza B (RT-PCR) Negative (Negative) RSV (RT-PCR) Negative (Negative) SARS-CoV-2 RNA (RT-PCR) Negative (Negative) Group A Strep (PCR) Not detected (Negative) Discharge Plan Discharge Patient Disposition: Home, Self-Care Follow-up/Referrals: Isac Neri MD [Primary Care Provider] -
== END 2024-01-13 13:18 | disposition home or self-care (01) ==
LOC: ANHED 12:24
PROVIDERS: Emergency Provider Emergency Medicine; PCP Emergency Medicine
DX: B34.9 Viral infection, unspecified (principal); Z20.822 Contact with and (suspected) exposure to COVID-19
CPT/HCPCS: 87637; 87651; 99283

== ENCOUNTER 2024-11-04 08:08 | Emergency (ER) | payer OTHER, SELFPAY ==
--- NOTE | 2024-11-04 08:11 | ED_ITS ---
HPI - Back Pain/Injury General Chief Complaint: Back Pain/Injury Stated Complaint: Back Pain Time Seen by Provider: 11/04/24 08:10 Source: patient Mode of arrival: ambulatory Limitations: no limitations History of Present Illness HPI Narrative: Ibis is a 34-year-old female patient presenting to the clinic today with complaints of right upper back pain x1 day. She reports she was doing hot Pilates over the weekend and yesterday developed pain over her rhomboid muscle. Denies any known injury. States that the pain is constant, dull, and aching. Has not taken any medications to treat her symptoms. No hand weakness or numbness and tingling in the upper extremities Related Data Home Medications ?Medication ?Instructions ?Recorded ?Confirmed ?Last Taken ?Type clindamycin phosphate 1 % lotion topical 11/04/24 Unknown History triamcinolone acetonide 0.5 % topical 11/04/24 Unknown History topical ointment Allergies Allergy/AdvReac Type Severity Reaction Status Date / Time No Known Allergies Allergy Unknown Verified 11/04/24 08:12 Review of Systems 2 Review of Systems: Pertinent positives per HPI. Patient denies any fever, chills, rash, headache, visual changes, dizziness, cough, runny nose, sore throat, shortness of breath, chest pain, palpitations, nausea, vomiting, diarrhea, constipation, abdominal pain, or any urinary issues. [facility] Past Medical History Medical History Overweight (BMI 25.0-29.9) Renal colic on right side Umbilical hernia Surgical History Surgical History History of ventral hernia repair 09/16/2021 - laparoscopic ventral incisional hernia repair with mesh History of delivery 2013 Family History Family History Mother Hypertension Thyroid condition Other Cancer Diabetes mellitus Social History Social History Smoking status: Never smoker Second hand tobacco smoke exposure: No Alcohol intake: current Alcohol use details: 10/MONTH Substance use: current Substance use type: marijuana Last use: 05/06/23 Living arrangements: with family Additional living arrangements comments: CHILDREN Gender identity (if verbalized by the patient): Female Spiritual care concerns: No Comments At the time of my signature, I reviewed and agree with the nursing past medical, surgical, social, and family history. There is no relevant family history pertinent to the patient complaint. Exam Narrative: General: Well-developed, well nourished, in no apparent distress Head: Normocephalic, atraumatic. Cardio: Regular rate and rhythm, s1 and s2 normal, no murmur appreciated. Resp: Clear to auscultation bilaterally, no rhonchi, rales, wheezing or rubs. Musculoskeletal: No deformity, tender to palpation over the right rhomboid muscle, grossly normal range of motion, muscle strength strong and equal in BLE. SLT negative, patellar reflexes 2/4 bilaterally, negative foot drop, normal gait and station Course Course Emergency Course: Portions of this record may have been created with voice recognition software. Level of Care: Express Care Visit Vital Signs Vital signs: Vital signs reviewed MDM - Back Pain/Injury MDM Narrative Medical decision making narrative: At the time of visit patient is resting comfortably on the exam table. Patient appears to be nontoxic. Plan: I suspect patient has a right rhomboid muscle strain. Prescription for Flexeril and Medrol Dosepak was sent to pharmacy. Supportive measures were discussed with the patient and they voiced understanding discharge instructions and agrees to treatment plan. Return precautions reviewed Differential Diagnosis Differential diagnosis: Likely lumbar radiculopathy, sciatica, strain of lumbar region, renal colic, pyelonephritis, thoracic back pain, AAA and discitis Discharge Plan Discharge Clinical Impression: Strain of right rhomboid muscle Patient Disposition: Home, Self-Care Condition: Stable Instructions: Antibiotic Form, Muscle Strain (ED) Additional Instructions: Take any prescription medication only as prescribed-Medrol Dosepak and Flexeril Be mindful of sedation precautions given to you if taking a muscle relaxer. May use heat or ice to the affected area Consider massage or chiropractor adjustment if this was discussed with provider May use blue emu, lidocaine patches, or asper cream to affected area- do not apply heat or ice directly over cream- can cause burn. Complete appropriate back stretching exercises. Follow up with your PCP in 3-5 days if symptom persist. Patient Language: Spanish Prescriptions: New cyclobenzaprine 10 mg tablet 10 mg PO Q8H PRN (Reason: muscle spasm) 7 Days Qty: 21 0RF methylprednisolone [Medrol ([place])] 4 mg tablets,dose pack See Rx Instructions PO .COMPLEX Qty: 21 0RF Rx Instructions: orally per package directions No Action triamcinolone acetonide 0.5 % ointment TOPICAL clindamycin phosphate 1 % lotion TOPICAL Follow-up/Referrals: Isac Neri MD [Primary Care Provider] - Time of Disposition: 08:25 Quality NIHSS Nursing Documentation ED NIHSS nursing documentation: reviewed/agree
[2024-11-04 08:17] VITALS: BP 120/80; PULSE 86; RESP 16; TEMP 36.8; O2SAT 100
== END 2024-11-04 08:30 | disposition home or self-care (01) ==
PROVIDERS: Emergency Provider Nurse Practitioner Family; PCP Emergency Medicine
DX: S29.012A Strain of muscle and tendon of back wall of thorax, initial encounter (principal); X58.XXXA Exposure to other specified factors, initial encounter
CPT/HCPCS: 99213; G0463

== ENCOUNTER 2025-06-27 12:48 | Emergency (ER) | payer OTHER, SELFPAY ==
[2025-06-27 12:52] VITALS: BP 130/82; PULSE 94; RESP 18; TEMP 36.7; O2SAT 100
--- NOTE | 2025-06-27 16:33 | ED.GENADULT ---
HPI - General Adult General Chief complaint: Extremity Problem,Nontraumatic Stated complaint: R hand numb, LLE pain Time Seen by Provider: 06/27/25 15:43 History of Present Illness HPI narrative: 34-year-old female presents to the emergency department for evaluation for decreased sensation over her thumb and index finger that is been intermittent over the last few days. Patient states she still has some sensation and denies any pain but reports that she wakes up in the morning she does have some decreased sensation in that distribution. 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 Patient denies any prior history of carpal tunnel syndrome. Patient denies any recent falls or injuries. Related Data Home Medications ?Medication ?Instructions ?Recorded ?Confirmed ?Last Taken ?Type clindamycin phosphate 1 % lotion topical 11/04/24 Unknown History triamcinolone acetonide 0.5 % topical 11/04/24 Unknown History topical ointment Allergies Allergy/AdvReac Type Severity Reaction Status Date / Time ibuprofen (From Advil) Allergy Intermediate rash Verified 06/27/25 15:36 Review of Systems Review of Systems: All systems reviewed & are unremarkable except as noted in HPI and below PMFSH Past Medical History Medical History Overweight (BMI 25.0-29.9) Renal colic on right side Umbilical hernia Surgical History Surgical History History of ventral hernia repair 09/16/2021 - laparoscopic ventral incisional hernia repair with mesh History of delivery 2013 Family History Family History Mother Hypertension Thyroid condition Other Cancer Diabetes mellitus Social History Social History Smoking status: Never smoker Second hand tobacco smoke exposure: No Alcohol intake: current Alcohol use details: 10/MONTH Substance use: current Substance use type: marijuana Last use: 05/06/23 Living arrangements: with family Additional living arrangements comments: CHILDREN Gender identity (if verbalized by the patient): Female Spiritual care concerns: No Exam Narrative: APPEARANCE: Well appearing, no pain, no distress, well-nourished. HEAD: normocephalic, atraumatic. EYES: PERRLA/EOMI, conjunctivae clear. NOSE: Normal no drainage EARS:TMS clear with good light reflex. THROAT: Pharynx clear, no exudate. NECK: Supple. No adenopathy, no masses. RESPIRATORY: Airway patent, respirations nonlabored. Clear to auscultation bilaterally, no rales, rhonchi, wheezing. CARDIOVASCULAR: Regular rate and rhythm without murmurs rubs or gallops. ABDOMINAL: Soft, nontender, nondistended, normal bowel sounds MUSCULOSKELETAL: Moves all extremities. Strength/ROM intact, No edema, No calf tenderness. NEURO: Subjective decrease in sensation in her thumb and index finger of right hand, normal strength and reflexes SKIN: Warm, dry. Normal Color Course Vital Signs Vital signs: Vital Signs Temperature 98.0 F 06/27/25 12:52 Pulse Rate 94 06/27/25 12:52 Respiratory Rate 18 06/27/25 12:52 Blood Pressure 130/82 06/27/25 12:52 Pulse Oximetry 100 06/27/25 12:52 Oxygen Delivery Room Air 06/27/25 12:52 Temperature 98.0 F 06/27/25 12:52 Pulse Rate 94 06/27/25 12:52 Respiratory Rate 18 06/27/25 12:52 Blood Pressure 130/82 06/27/25 12:52 Pulse Oximetry 100 06/27/25 12:52 Oxygen Delivery Room Air 06/27/25 12:52 Medical Decision Making MDM Narrative Medical decision making narrative: 34-year-old female presents emergency department for evaluation for decreased sensation in thumb and index finger right hand. Symptoms are not worsened with Tinel or Phalen test. Patient was provided Medrol Dosepak and advised to wear a volar cock-up splint at nighttime to see if this helps with her symptoms. Patient was also encouraged to have close follow-up with her primary care physician. All questions concerns were addressed. Differential Diagnosis Differential Diagnosis: Carpal tunnel syndrome, overuse injury, radiculopathy, paresthesia Vital Signs Vital Signs: Vital Signs Temperature 98.0 F 06/27/25 12:52 Pulse Rate 94 06/27/25 12:52 Respiratory Rate 18 06/27/25 12:52 Blood Pressure 130/82 06/27/25 12:52 Pulse Oximetry 100 06/27/25 12:52 Oxygen Delivery Room Air 06/27/25 12:52 Temperature 98.0 F 06/27/25 12:52 Pulse Rate 94 06/27/25 12:52 Respiratory Rate 18 06/27/25 12:52 Blood Pressure 130/82 06/27/25 12:52 Pulse Oximetry 100 06/27/25 12:52 Oxygen Delivery Room Air 06/27/25 12:52 Discharge Plan Discharge Clinical Impression: Paresthesia, Repetitive use syndrome Patient Disposition: Home Condition: Stable Instructions: Antibiotic Form, Carpal Tunnel Syndrome (DC), Paresthesia (ED) Additional Instructions: Medrol Dosepak as directed. Wrist brace as directed at night to prevent flexion of the wrist. Have close follow-up with her primary care physician. If you have any worsening symptoms and please call or return to the emergency department. Muscle relaxant as directed for the left leg cramping Patient Language: Romansh Prescriptions: New cyclobenzaprine 10 mg tablet 10 mg PO BID PRN (Reason: muscle spasm) Qty: 14 0RF methylprednisolone [Medrol ([place])] 4 mg tablets,dose pack See Rx Instructions .ROUTE .COMPLEX Qty: 21 0RF Rx Instructions: for 6 days No Action triamcinolone acetonide 0.5 % ointment TOPICAL clindamycin phosphate 1 % lotion TOPICAL cyclobenzaprine 10 mg tablet 10 mg PO Q8H PRN (Reason: muscle spasm) 7 Days Qty: 21 0RF methylprednisolone [Medrol ([place])] 4 mg tablets,dose pack See Rx Instructions PO .COMPLEX Qty: 21 0RF Rx Instructions: orally per package directions Follow-up/Referrals: PHYSICIAN,PERIODICALS CLERK [Primary Care Provider, Internal Medicine]
== END 2025-06-27 16:47 | disposition home or self-care (01) ==
PROVIDERS: Emergency Provider Emergency Medicine
DX: R20.2 Paresthesia of skin (principal); M70.841 Other soft tissue disorders related to use, overuse and pressure, right hand; E66.3 Overweight; Z68.27 Body mass index [BMI] 27.0-27.9, adult; Z87.442 Personal history of urinary calculi; Y93.C1 Activity, computer keyboarding
CPT/HCPCS: 99283